=== PATIENT | female | born 1975 | race Caucasian/White ===

== ENCOUNTER 2020-09-10 17:55 | Inpatient (IN) | payer MEDICARE, MEDICAID, SELFPAY ==
[2020-09-10] VITALS (10 sets, daily range): BP systolic 121–150; BP diastolic 67–100; PULSE 81–96; RESP 14–21; TEMP 36.4–36.9; O2SAT 97–100; BMI 33.5
--- NOTE | 2020-09-10 18:04 | PC.NURSE ---
poison control Kevyn Garcia contacted charcoal is of no benefit since lithium does not bind to charcoal obtain baseline and serial lithium levels Q 4-6 hours and watch for trending peak levels in normal usage 1-3 hours but will be extended with overdose up to 17 hours if levels high hemodialysis is only way to rid body of lithium check for other co-ingestion such as asa and tylenol hydraion cause can decrease renal function, cause tremors, gi upset, n/v/d, serotonin toxicity
--- NOTE | 2020-09-10 18:11 | ECG_ITS ---
Measurements Intervals [place] Rate: 79 P: 37 WV: 191 QRS: -16 QRSD: 102 T: 21 QT: 389 QTc: 448 Interpretive Statements SINUS RHYTHM BORDERLINE T WAVE ABNORMALITY- INFERIOR LEADS BASELINE WANDER- I, II BORDERLINE ECG Electronically Signed On 09-10-2020 20:16:23 CUSTOMER RECORDS DIVISION SUPERVISOR by Kenneth Allison D.O.
--- NOTE | 2020-09-10 18:26 | ED.OVERDOSE ---
HPI - Overdose General Chief Complaint: Overdose Stated Complaint: overdose Time Seen by Provider: 09/10/20 18:11 History of Present Illness HPI Narrative: 44 yo female w/ h/o BPD presents to the ED for a lithium overdose. She reports that she took 45 150 mg lithium carbonate capsules. She was feeling more depressed and was trying to kill herself. She then changed her mind. She had mild nausea, but on presentation denies any physical symptoms. Related Data Home Medications Medication Instructions Recorded Confirmed alprazolam 0.5 mg PO BID 07/24/19 09/10/20 bupropion HCl 300 mg PO DAILY 07/24/19 09/10/20 bsuwvshbbq-tyjzkbjkdkysy-npzi 1 tablet PO Q4H PRN 07/24/19 09/10/20 lithium carbonate 300 mg PO DAILY 07/24/19 09/10/20 topiramate 100 mg PO BID 07/24/19 09/10/20 levothyroxine 175 mcg PO DAILY 09/10/20 09/10/20 oxycodone-acetaminophen 1 tablet PO Q6H PRN 09/10/20 09/10/20 ubrogepant [Ubrelvy] 50 mg PO DAILY PRN 09/10/20 09/10/20 Allergies Allergy/AdvReac Type Severity Reaction Status Date / Time codeine Allergy Severe Hives Verified 09/10/20 17:59 morphine Allergy Severe Hives Verified 09/10/20 17:59 NSAIDS (Non-Steroidal AdvReac Unknown Other Verified 09/10/20 17:59 Anti-Inflamma Review of Systems Review of Systems: All systems reviewed & are unremarkable except as noted in HPI and below Constitutional: Constitutional: Reports fever(s) Cardiovascular: Cardiovascular: Denies chest pain Respiratory: Respiratory: Denies dyspnea Gastrointestinal: Gastrointestinal: Denies abdominal pain, Reports nausea and Denies vomiting Genitourinary: Genitourinary: Denies hematuria and Denies dysuria Musculoskeletal: Musculoskeletal: Denies back pain Neurologic: Denies confusion, Denies dizziness and Denies weakness Psychiatric: Psychiatric: Reports anxiety, Reports depression and Reports suicidal ideation [facility] Past Medical History Medical History (Updated 09/16/20 @ 13:57 by Tanner Gorman MD) Bipolar 1 disorder Depression Hypothyroidism Insomnia Type 2 diabetes mellitus Family History Family History (Updated 09/10/20 @ 23:16 by Stacie De Paz RN) Father Acute myocardial infarction Colon cancer Congestive heart failure Diabetes mellitus Hypertension Mother Acute myocardial infarction Diabetes mellitus Hypertension Sibling Asthma Other Bipolar disorder Heart disease Schizophrenia Social History Social History (Updated 09/10/20 @ 21:18 by Tom Styles DO) Social History: Going through a divorce, she has 2 boys who do not live with her. Smoking status: Former smoker Smoking end date: 09/16/99 Alcohol intake: never Substance use: current Substance use type: marijuana Last use: 09/09/20 Living arrangements: with friend(s) Occupation/Education: other Additional occupation/education comments: Disability for her back problems since 2012 Gender identity (if verbalized by the patient): Female Spiritual care concerns: No Exam Const: General: healthy appearing, no acute distress and alert Orientation/consciousness: patient oriented x3 HENMT: Head: normal to inspection Eyes: Pupils: Equal, round and reactive pupils present Neck: Neck: normal visual inspection and no lymphadenopathy Chest: Chest palpation & inspection: no tenderness Resp: Effort & Inspection: normal respiratory effort Auscultation: clear to auscultation bilaterally, no rales, no rhonchi and no wheezes Cardio: Jugular venous distension: no JVD Rate: regular rate Rhythm: regular rhythm Heart sounds: no murmurs GI: Inspection: non-distended GI Palp: Yes Soft to palpation and No Tenderness to palpation present (GI) Skin: General skin exam: normal color Neuro: General: patient oriented x3 and moves all extremities Speech: normal speech Extrem: General: no edema Psych: Appearance: well kempt Affect: Sad affect present Thought content: Yes Suicidality pres
[2020-09-10 18:33] LABS: Basophils Absolute Auto 0.2 K/mm3 (0.0-0.1); Basophils Percent Auto 1.2 % (0.2-1.2); Eosinophils Absolute Auto 0.4 K/mm3 (0-0.3); Eosinophils Percent Auto 2.9 % (0-4.4); Hematocrit 40.9 % (37.0-47.0); Hemoglobin 13.8 g/dL (12.0-15.0); Immature Granulocyte Absolute 0.04 K/mm3 (0.00-0.031); Immature Granulocyte Percent A 0.3 % (0-0.5); Lymphocytes Absolute Auto 3.45 K/mm3 (0.9-3.2); Lymphocytes Percent Auto 27.2 % (18.3-44.2); Mean Corpuscular HGB Conc 33.7 g/dl (32-36); Mean Corpuscular Hemoglobin 30.2 pg (26-34); Mean Corpuscular Volume 89.5 fl (80-100); Mean Platelet Volume 10.1 fl (7.4-10.4); Monocytes Absolute Auto 0.5 K/mm3 (0.1-0.6); Monocytes Percent Auto 4.2 % (2.6-8.5); Neutrophils Absolute Auto 8.1 K/mm3 (1.3-6.7); Neutrophils Percent Auto 64.2 % (45.5-73.1); Platelet Count Result 290 k/mm3 (150-375); Red Blood Count 4.57 M/mm3 (4.2-5.4); Red Cell Distribution Width 13.1 % (11.5-14.5); White Blood Count 12.7 K/mm3 (4.5-10.0)
[2020-09-10 18:42] LABS: INR 0.9; Prothrombin Time 13.1 Seconds (11.1-14.7)
[2020-09-10 18:43] LABS: Partial Thromboplastin Time 31.3 SECONDS (22.3-36.8)
[2020-09-10 18:44] LABS: Acetaminophen < 10 ug/mL (10-30); Alanine Aminotransferase 49 U/L (4-35); Albumin Level 4.5 g/dL (3.5-5.1); Alkaline Phosphatase 155 U/L (38-126); Anion Gap 12 mmol/L (8-16); Aspartate Amino Transferase 48 U/L (14-36); Bilirubin,Total 0.4 mg/dL (0.2-1.3); Blood Urea Nitrogen 14 mg/dL (7-17); Calcium 9.6 mg/dL (8.4-10.2); Carbon Dioxide 25 mmol/L (22-30); Chloride 106 mmol/L (98-107); Estimated CRCL calculation 58 ml/min; Estimated Glomerular Filt Rate > 60; Ethanol < 10 mg/dL (<10); Glucose 96 mg/dL (65-105); Phosphorus 4.1 mg/dL (2.5-4.5); Potassium 3.7 mmol/L (3.4-5.0); Salicylate < 1.0 mg/dL (2-20); Sodium 143 mmol/L (137-145)
[2020-09-10] MEDS: SODIUM CHLORIDE 0.9% IV 1,000 ML 999 ML IV CONT ×2 (18:57→19:58)
[2020-09-10 19:20] LABS: Lithium 0.6 mmol/L (0.6-1.2)
--- NOTE | 2020-09-10 19:39 | PM.IMHP ---
H&P: HPI History of Present Illness Date/Time: 09/10/20 19:39 Chief Complaint: Intentional lithium overdose Narrative: Cami Duval is a 44 year old female complicated psychiatric history bipolar disorder on multiple agents, history of suicide ideation, type 2 diabetes diet controlled, migraine, and hypothyroidism presents to the ED with complaints lithium overdose. Patient admitted feeling very depressed recently especially on as her 2 sons do not live with her and she is going through a divorce. She feels that her friends and family do not understand which she is going through. She has had history of suicide ideation and never suicide attempt. This evening at 5:30 p.m. she took 40 tablets of lithium, and immediately regretted her decision leading her to the ER. She did not take any other substances. She denies alcohol use or drug use this evening. She did endorse using marijuana yesterday. She follows PCP Dr. Aroldo Nick, last time saw 4 months ago who helps manage her lithium by and bipolar disorder. She does not have a psychiatrist and is looking for help. Other history patient is on disability for back problems since 2012. She currently is living with a friend. In the ED: Labs are stable, slight transaminitis with AST 48, ALT 49, alk-phos 155. [place] level 0.6 at this time, other tox screen negative. Patient admitted for observation for lithium overdose in ICU. At 1st she did not have any symptoms, and now she is developing some tremors and cramping in her arms and legs. She has nausea without vomiting. Review of Systems Review of Systems: Narrative: Constitutional: No Fever, No Chills, No Night Sweats, No Fatigue, No Malaise ENT/Mouth: No Hearing Changes, No Ear Pain, No Nasal Congestion, No Sinus Pain, No Hoarseness, No sore throat, No Rhinorrhea, No Swallowing Difficulty Eyes: No Eye Pain, No Redness, No Vision Changes Cardiovascular: No Chest Pain, No Palpitations, No Dyspnea on Exertion, No Orthopnea, No Claudication, No Edema Respiratory: No Cough, No Sputum, No Wheezing, No Shortness of Breath Gastrointestinal: No Vomiting, No Diarrhea, No Constipation, No Abdominal Pain, No Heartburn, No Hematochezia, No Melena. Endorses nausea. Genitourinary: No Dysuria, No Urinary Frequency, No Hematuria, No Urinary Incontinence, No Urgency Musculoskeletal: No Arthralgias, No Myalgias, No Joint Swelling, No Joint Stiffness, No Back Pain Skin: No Skin Lesions, No Pruritis, No Hair Changes Neuro: No Weakness, No Numbness, No Paresthesias, No Loss of Consciousness, No Syncope, No Dizziness, No Headache. She is starting to develop cramps in her arms and legs, minor tremors. Psych: Endorses depression, suicide ideation. Denies homicidal ideation. Heme: No Bruising, No Bleeding Lymph: No Adenopathy Endocrine: No Polyuria, No Polydipsia, No Temperature Intolerance [facility] Past Medical History Medical History (Updated 09/10/20 @ 21:16 by Tom Styles DO) Bipolar 1 disorder Depression Hypothyroidism Insomnia Type 2 diabetes mellitus Family History Family History (Updated 09/10/20 @ 21:16 by Tom Styles DO) Other Bipolar disorder Diabetes mellitus Heart disease Schizophrenia Social History Social History (Updated 09/10/20 @ 21:18 by Tom Styles DO) Social History: Going through a divorce, she has 2 boys who do not live with her. Smoking status: Former smoker Alcohol intake: never Substance use: current Substance use type: marijuana Last use: Yesterday marijuana Living arrangements: with friend(s) Occupation/Education: other Additional occupation/education comments: Disability for her back problems since 2012 Gender identity (if verbalized by the patient): Female Meds Home Medications and Allergies Home Medications Medication Instructions Recorded Confirmed Type alprazolam 07/24/19 History bupropion HCl mg PO 07/24/19 History
[2020-09-10] MEDS: LORazepam INJ (*CRX) 2 MG/ML VIAL 1 MG IV PUSH (19:57)
--- NOTE | 2020-09-10 20:00 | PC.NURSE ---
Patient sent her phone home with her friend Tony Torres at this time.
--- NOTE | 2020-09-10 20:48 | PC.NURSE ---
Patient up to bathroom with prosthetic lab technician. Patient unable to provide urine at this time.
[2020-09-10] MEDS: SODIUM CHLORIDE 0.9% IV 1,000 ML 125 ML IV CONT (21:52)
[2020-09-10 23:24] LABS: Glucose Point of Care 75 (65-105)
--- NOTE | 2020-09-10 23:46 | ECG_ITS ---
Measurements Intervals [place] Rate: 86 P: 46 MS: 200 QRS: 47 QRSD: 92 T: 57 QT: 380 QTc: 456 Interpretive Statements SINUS RHYTHM BASELINE ARTIFACT- I, II, III, AVR, AVL, AVF, V1, V4-V6 NORMAL ECG Electronically Signed On 09-11-2020 7:45:38 GEODETIC ADVISOR by Kenneth Allison D.O.
[2020-09-11] VITALS (14 sets, daily range): BP systolic 115–144; BP diastolic 73–87; PULSE 80–97; RESP 14–24; TEMP 36.8–37.6; O2SAT 97–100
--- NOTE | 2020-09-11 00:01 | ECG_ITS ---
Measurements Intervals [place] Rate: 85 P: 49 TN: 186 QRS: 33 QRSD: 91 T: 47 QT: 383 QTc: 458 Interpretive Statements SINUS RHYTHM BASELINE ARTIFACT- I, II, III, AVR, AVL, AVF NORMAL ECG Electronically Signed On 09-11-2020 7:46:52 PAYMENT MANAGER by Kenneth Allison D.O.
[2020-09-11 00:48] LABS: Add Urine Microscopic? NO; Appearance Urine Clear (Clear); Bilirubin Urine Negative (Negative); Blood Urine Negative (Negative); Color Urine Straw (Yellow); Glucose Urine UA Negative (Negative); Ketones Urine Negative (Negative); Leukocyte Esterase Ur Negative LEU/UL (Negative); Nitrate Urine Negative (Negative); Protein Urine Negative (Negative); Specific Grav Ur 1.009 (1.001-1.035); Urobilinogen Urine Negative mg/dL (<2.0)
[2020-09-11 01:02] LABS: Amphetamine Screen Urine Positive (Negative); Barbiturate Screen Urine Negative (Negative); Benzodiazepines Screen Urine Negative (Negative); Cannabinoid Screen Urine Positive (Negative); Cocaine Screen Urine Negative (Negative); Methadone Screen Urine Negative (Negative); Opiate Screen Urine Negative (Negative); Phencyclidine Screen Urine Negative (Negative)
[2020-09-11 01:41] LABS: Lithium 2.1 mmol/L (0.6-1.2)
[2020-09-11] MEDS: SODIUM CHLORIDE 0.9% IV 1,000 ML 125 ML IV CONT ×2 (05:02→13:21)
--- NOTE | 2020-09-11 08:00 | ECG_ITS ---
Measurements Intervals [place] Rate: 77 P: 42 VA: 203 QRS: 33 QRSD: 96 T: 54 QT: 412 QTc: 467 Interpretive Statements SINUS RHYTHM BORDERLINE ECG Electronically Signed On 09-11-2020 15:04:09 TABLE ASSEMBLER METAL by Kenneth Allison D.O.
[2020-09-11 08:26] LABS: Lithium 1.5 mmol/L (0.6-1.2)
[2020-09-11] MEDS: SODIUM CHLORIDE 0.9% IV 1,000 ML 999 ML IV CONT (08:36)
[2020-09-11 09:24] LABS: Alanine Aminotransferase 31 U/L (4-35); Albumin Level 3.3 g/dL (3.5-5.1); Alkaline Phosphatase 117 U/L (38-126); Anion Gap 8 mmol/L (8-16); Aspartate Amino Transferase 26 U/L (14-36); Bilirubin,Total 0.3 mg/dL (0.2-1.3); Blood Urea Nitrogen 8 mg/dL (7-17); Calcium 8.8 mg/dL (8.4-10.2); Carbon Dioxide 22 mmol/L (22-30); Chloride 113 mmol/L (98-107); Estimated CRCL calculation 59 ml/min; Estimated Glomerular Filt Rate > 60; Glucose 86 mg/dL (65-105); Potassium 3.4 mmol/L (3.4-5.0); Sodium 143 mmol/L (137-145)
--- NOTE | 2020-09-11 10:00 | PM.IMPN ---
Progress Note: A&P Assessment and Plan (1) Intentional lithium overdose: Code(s): T56.892A - Toxic effect of other metals, intentional self-harm, initial encounter Status: Acute Assessment and Plan: -intentional overdose of 40 pills of lithium at 5:30 p.m. 09/10/2020 -EKG shows normal sinus rhythm rate 79, QTC 448 -continue watching on telemetry, looking out for QTC prolongation and bradycardia -lithium level 0.6 will continue to watch, currently does not need dialysis, if levels are greater than 5 or symptomatic she may need dialysis -seizure precautions, suicide precautions -anticipate nausea vomiting and diarrhea, will need to be careful with QT prolonging agents -patient was complaining of tremors, she did not have any significant tremors on my evaluation, will continue to watch as lithium toxicity can lead to tremors or fasciculations -acetaminophen and salicylate levels are negative -patient received 2 L normal saline bolus, will continue IV fluids normal saline 125 cc/hour to help with clearance -consulting dry starch supervisor for ICU admission -poison Control notified -patient will need psychiatric care Additional Plan Patient lithium level is trending down. Patient more awake and alert. Will start diet. And restart home medications. Will continue to watch patient. Subjective Date/time seen: 09/11/20 10:00 Interval history: Patient was seen during the morning rounds today. Patient is more awake and alert. No shortness of breath or chest pain. No abdominal pain nausea or vomiting. Mood stable. Review of Systems Review of Systems: All systems reviewed & are unremarkable except as noted in HPI and below (the history and physical exam) Exam Narrative: Exam Narrative: - GENERAL: Pleasant woman in no acute distress. - EYES: EOMI. Anicteric. - HENT: Moist mucous membranes. - LUNGS: Clear to auscultation bilaterally, no wheezing, rhonchi, or rales. - CARDIOVASCULAR: Regular rate and rhythm. No murmur. No JVD. - ABDOMEN: Soft, non-tender and non-distended. No palpable masses. - EXTREMITIES: No edema. Peripheral pulses 2+. Non-tender. - NEUROLOGIC: No focal neurological deficits. CN II-XII grossly intact. - PSYCHIATRIC: Awake, Alert and oriented x 3. Tearful mood and affect. She was calm when talking to me, not overly anxious given the circumstances. She does have remorse for her intentional overdose prompting her to come to the hospital so quickly after overdose. - SKIN: No rashes or lesions. Warm. Tattoos throughout. - LYMPH: No cervical lymphadenopathy. Objective Data Vital Signs Vital Signs: Vital Signs - 24 hr 09/10/20 17:56 09/10/20 18:18 09/10/20 19:30 Temperature 36.4 C L 36.6 C Pulse Rate 95 90 84 Respiratory Rate 14 14 21 H Blood Pressure 150/100 H 129/82 136/79 Pulse Oximetry 100 98 97 09/10/20 20:01 09/10/20 20:31 09/10/20 21:18 Temperature 36.8 C 36.6 C 36.4 C L Pulse Rate 81 82 89 Respiratory Rate 15 20 16 Blood Pressure 121/70 136/86 123/67 Pulse Oximetry 100 98 99 09/10/20 21:45 09/10/20 22:00 09/10/20 22:30 Temperature Pulse Rate 84 84 Respiratory Rate 21 H Blood Pressure 140/85 Pulse Oximetry 100 100 09/10/20 23:00 09/11/20 00:00 09/11/20 01:00 Temperature 36.9 C Pulse Rate 96 90 81 Respiratory Rate 19 24 H 15 Blood Pressure 134/85 141/82 H 143/80 H Pulse Oximetry 100 100 97 09/11/20 02:00 09/11/20 04:00 09/11/20 06:30 Temperature 36.8 C Pulse Rate 89 86 80 Respiratory Rate 19 14 17 Blood Pressure 144/81 H 125/79 115/73 Pulse Oximetry 100 100 98 09/11/20 08:00 Temperature 36.8 C Pulse Rate 85 Respiratory Rate 21 H Blood Pressure 132/80 Pulse Oximetry 99 Intake/Output Intake/Output: Intake & Output 09/08/20 09/09/20 09/10/20 09/11/20 23:59 23:59 23:59 23:59 Intake Total 1999 1170 Output Total 1299 Balance 1999 - Meds/Results Medications: Active Medications Generic Name Dose Route Start Last Admin Trade Name F
--- NOTE | 2020-09-11 13:08 | WPDCNINT ---
Assessment and Plan Assessment and plan (1) Intentional lithium overdose: Code(s): T56.892A - Toxic effect of other metals, intentional self-harm, initial encounter Status: Acute Assessment and Plan: [place] levels were initially 0.6, increased to 2.5 when she started demonstrating toxicity from lithium with nausea, vomiting, diarrhea. -repeat lithium level this morning was 1.5. No EKG changes with normal QTC, nausea vomiting diarrhea resolved. -continue to monitor lithium levels -poison control was notified, continue to monitor for now -nephrology also was notified to the ER (2) Suicidal behavior: Code(s): R45.89 - Other symptoms and signs involving emotional state Status: Acute Assessment and Plan: Patient with suicidal behavior in will enter life but decided against and presented to the ED after ingesting lithium 150 mg x 45 pills. -patient medically stable -will have care coordination in crisis management evaluate the patient -suicide precaution - sitter at bedside (3) Diabetes: Code(s): E11.9 - Type 2 diabetes mellitus without complications Status: Acute Assessment and Plan: Sugars are stable, continue Accu-Cheks and sliding scale insulin (4) Hypothyroidism: Code(s): E03.9 - Hypothyroidism, unspecified Status: Acute Assessment and Plan: Continue levothyroxine (5) DVT prophylaxis: Code(s): Z29.9 - Encounter for prophylactic measures, unspecified Status: Acute Assessment and Plan: Heparin SQ Additional Plan Discussed with patient updated with her condition and plan of care. She is aware that and lithium levels are trending down. Counseled patient on cessation of marijuana and methamphetamine use Started on clear liquid diet and will advance as tolerated Code status: Full code Critical care time spent: 42 minutes Due to a high probability of clinically significant, life threatening deterioration, the patient required my highest level of preparedness to intervene emergently and I personally spent this critical care time directly and personally managing the patient. This critical care time included obtaining a history; examining the patient; pulse oximetry; ordering and review of studies; arranging urgent treatment with development of a management plan; evaluation of patient's response to treatment; frequent reassessment; and discussions with other providers. It was exclusive of separately billable procedures and treating other patients and teaching time. Please see Assessment and Plan section and the rest of the note for further information on patient assessment and treatment Senior Sales Associate Consult Note Consult date: 09/11/20 Time Seen: 07:03 Reason for consult: [place] overdose, suicide behavior HPI: Cami Duval is a 44 year old female past medical history of BiPAP disorder, depression hypothyroidism insomnia type 0 diabetes presented the ED ingestion of lithium 150 mg x45 pills. According the ER note she was feeling depressed was trying to kill herself but then changed her mind and presented the ED. In the ED patient was given IV fluids, poison control was notified and so was Nephrology. Patient was transferred to the ICU after been given 2 L of IV fluids. Initial lithium level was 0.6 and repeat level was 2.5. Patient did exhibit nausea, vomiting, diarrhea. Remained on maintenance IV fluids, this morning her lithium levels are 1.5. Patient denies any nausea, vomiting, abdominal pain, tremors, diarrhea. EKG did not show any QT prolongation. Patient able to tolerate clear liquid diet urine drug screen was positive for methamphetamine and marijuana. Which patient agrees to be taking. Acetaminophen and salicylate levels are negative. Review of Systems Review of Systems: All systems reviewed & are unremarkable except as noted in HPI and below [facility] Past Medical History Medical History (Updated 09/11/20 @ 13:17 by Dulce Campoverde
[2020-09-11 13:24] LABS: Lithium 1.2 mmol/L (0.6-1.2)
[2020-09-11] MEDS: ACETAMINOPHEN 325 MG TABLET 650 MG PO (20:49)
[2020-09-11] MEDS: HEPARIN SODIUM 5,000 UNITS/ML VIAL 5000 UNITS SUB-Q (20:51)
[2020-09-11 21:07] LABS: Lithium 0.9 mmol/L (0.6-1.2)
[2020-09-12] VITALS (14 sets, daily range): BP systolic 115–143; BP diastolic 70–84; PULSE 69–87; RESP 13–23; TEMP 36.4–37.4; O2SAT 98–99; BMI 27.4
[2020-09-12 01:56] LABS: Lithium 0.9 mmol/L (0.6-1.2)
[2020-09-12] MEDS: ACETAMINOPHEN 325 MG TABLET 650 MG PO (04:46)
[2020-09-12] MEDS: SODIUM CHLORIDE 0.9% IV 1,000 ML 125 ML IV CONT ×2 (04:48→05:36)
[2020-09-12] MEDS: ALPRAZolam (*CRX) 0.5 MG TABLET PO ×2 (05:37→20:22)
[2020-09-12 06:14] LABS: Hematocrit 32.5 % (37.0-47.0); Mean Corpuscular HGB Conc 33.8 g/dl (32-36); Mean Corpuscular Volume 88.6 fl (80-100); Mean Platelet Volume 9.9 fl (7.4-10.4); Platelet Count Result 211 k/mm3 (150-375); Red Blood Count 3.67 M/mm3 (4.2-5.4); Red Cell Distribution Width 12.9 % (11.5-14.5); White Blood Count 13.8 K/mm3 (4.5-10.0)
[2020-09-12 06:44] LABS: Lithium 0.8 mmol/L (0.6-1.2)
--- NOTE | 2020-09-12 08:11 | PM.IMPN ---
Progress Note: A&P Assessment and Plan (1) Intentional lithium overdose: Code(s): T56.892A - Toxic effect of other metals, intentional self-harm, initial encounter Status: Acute Assessment and Plan: -intentional overdose of 40 pills of lithium at 5:30 p.m. 09/10/2020 -EKG shows normal sinus rhythm rate 79, QTC 448 -continue watching on telemetry, looking out for QTC prolongation and bradycardia -lithium level 0.6 will continue to watch, currently does not need dialysis, if levels are greater than 5 or symptomatic she may need dialysis -seizure precautions, suicide precautions -anticipate nausea vomiting and diarrhea, will need to be careful with QT prolonging agents -patient was complaining of tremors, she did not have any significant tremors on my evaluation, will continue to watch as lithium toxicity can lead to tremors or fasciculations -acetaminophen and salicylate levels are negative -patient received 2 L normal saline bolus, will continue IV fluids normal saline 125 cc/hour to help with clearance -consulting bottoming room supervisor for ICU admission -poison Control notified -patient will need psychiatric care Additional Plan Patient lithium level is trending down. Patient more awake and alert. Will start diet. And restart home medications. Will continue to watch patient. Crisis intervention with see the patient today. Possible discharge today Subjective Date/time seen: 09/12/20 08:11 Interval history: Patient was seen during the morning rounds today. Patient is more awake and alert. No shortness of breath or chest pain. No abdominal pain nausea or vomiting. Mood stable. No new complaints Review of Systems Review of Systems: All systems reviewed & are unremarkable except as noted in HPI and below (the history and physical exam) Exam Narrative: Exam Narrative: - GENERAL: Pleasant woman in no acute distress. - EYES: EOMI. Anicteric. - HENT: Moist mucous membranes. - LUNGS: Clear to auscultation bilaterally, no wheezing, rhonchi, or rales. - CARDIOVASCULAR: Regular rate and rhythm. No murmur. No JVD. - ABDOMEN: Soft, non-tender and non-distended. No palpable masses. - EXTREMITIES: No edema. Peripheral pulses 2+. Non-tender. - NEUROLOGIC: No focal neurological deficits. CN II-XII grossly intact. - PSYCHIATRIC: Awake, Alert and oriented x 3. Tearful mood and affect. She was calm when talking to me, not overly anxious given the circumstances. She does have remorse for her intentional overdose prompting her to come to the hospital so quickly after overdose. - SKIN: No rashes or lesions. Warm. Tattoos throughout. - LYMPH: No cervical lymphadenopathy. Objective Data Vital Signs Vital Signs: Vital Signs - 24 hr 09/11/20 10:00 09/11/20 12:00 09/11/20 14:00 Temperature Pulse Rate 85 85 87 Respiratory Rate 16 Blood Pressure 124/74 Pulse Oximetry 99 09/11/20 16:00 09/11/20 18:00 09/11/20 20:00 Temperature 37.6 C 36.8 C Pulse Rate 89 96 95 Respiratory Rate 18 18 Blood Pressure 135/87 127/75 Pulse Oximetry 100 99 09/11/20 20:49 09/11/20 22:00 09/12/20 00:00 Temperature 36.8 C Pulse Rate 80 81 Respiratory Rate 21 H Blood Pressure Pulse Oximetry 09/12/20 02:00 09/12/20 03:57 09/12/20 04:00 Temperature 37.4 C Pulse Rate 81 81 81 Respiratory Rate 23 H Blood Pressure 125/70 Pulse Oximetry 99 09/12/20 05:12 09/12/20 06:00 Temperature Pulse Rate 81 81 Respiratory Rate 15 Blood Pressure 115/73 Pulse Oximetry 98 Intake/Output Intake/Output: Intake & Output 09/09/20 09/10/20 09/11/20 09/12/20 23:59 23:59 23:59 23:59 Intake Total 1999 4890 1000 Output Total 3650 1050 Balance 1999 1240 -50 Meds/Results Medications: Active Medications Generic Name Dose Route Start Last Admin Trade Name Freq PRN Reason Stop Dose Admin Acetaminophen 650 mg 09/11/20 19:51 09/12/20 04:46 Acetaminophen 325 Mg Tablet PO 650 mg Q6H PRN Administration
[2020-09-12] MEDS: LEVOTHYROXINE SODIUM 100 MCG TABLET PO (08:18)
[2020-09-12] MEDS: LEVOTHYROXINE SODIUM 75 MCG TABLET PO (08:18)
[2020-09-12] MEDS: HEPARIN SODIUM 5,000 UNITS/ML VIAL 5000 UNITS SUB-Q ×2 (08:18→20:23)
[2020-09-12] MEDS: buPROPion HCL XL (24 HR) 150 MG TABCR 300 MG PO (08:18)
[2020-09-12] MEDS: LITHIUM CARBONATE 300 MG CAPSULE PO (09:21)
[2020-09-12] MEDS: TOPIRAMATE 100 MG TABLET PO ×2 (09:22→16:38)
[2020-09-12 17:10] LABS: SARS-CoV-2 RNA PCR Negative
[2020-09-12 17:50] LABS: Beta HCG Quantitative 3.31 mIU/ML
--- NOTE | 2020-09-12 19:44 | PC.NURSE ---
Spoke with RN at [facility] in [place]. Requested chart faxed. Chart faxed along with COVID test.
[2020-09-13] VITALS: BP 129/87; PULSE 73; RESP 14; TEMP 36.8
[2020-09-13 02:00] VITALS: PULSE 78
[2020-09-13] MEDS: ACETAMINOPHEN 325 MG TABLET 650 MG PO (02:54)
[2020-09-13 04:00] VITALS: BP 145/87; PULSE 71; RESP 18; TEMP 36.7; O2SAT 98
[2020-09-13 06:00] VITALS: PULSE 60
[2020-09-13] MEDS: LEVOTHYROXINE SODIUM 75 MCG TABLET PO (06:03)
[2020-09-13] MEDS: LEVOTHYROXINE SODIUM 100 MCG TABLET PO (06:04)
[2020-09-13 08:00] VITALS: BP 126/80; PULSE 60; PULSE 71; RESP 14; TEMP 36.3; O2SAT 100
[2020-09-13] MEDS: HEPARIN SODIUM 5,000 UNITS/ML VIAL 5000 UNITS SUB-Q (08:46)
[2020-09-13] MEDS: buPROPion HCL XL (24 HR) 150 MG TABCR 300 MG PO (08:46)
[2020-09-13] MEDS: TOPIRAMATE 100 MG TABLET PO (08:46)
[2020-09-13] MEDS: LITHIUM CARBONATE 300 MG CAPSULE PO (08:46)
--- NOTE | 2020-09-13 10:31 | PC.NURSE ---
1010- PT DISCHARGED TO [facility] PER EMS. PT AOX3. VITAL SIGNS STABLE. DENIES PAIN. REPORT GIVEN TO EMS. PT UP TO RESTROOM AND GIVEN PAPER SCRUBS. BELONGINGS GIVEN TO EMS. RT AC PIV DC'ED. PT MOTHER AND CALLED AND UPDATED.
--- NOTE | 2020-09-13 15:36 | PM.IMPN ---
Subjective Date/time seen: 09/13/20 15:36 Interval history: 44 year old female complicated psychiatric history bipolar disorder on multiple agents, history of suicide ideation, type 2 diabetes diet controlled, migraine, and hypothyroidism presents to the ED with complaints lithium overdose. Objective Data Vital Signs Vital Signs: Vital Signs - 24 hr 09/12/20 16:00 09/12/20 17:57 09/12/20 20:00 Temperature 36.4 C L 36.7 C Pulse Rate 85 81 81 Respiratory Rate 16 16 Blood Pressure 143/84 H 140/77 Pulse Oximetry 09/12/20 22:00 09/13/20 00:00 09/13/20 02:00 Temperature 36.8 C Pulse Rate 87 73 78 Respiratory Rate 14 Blood Pressure 129/87 Pulse Oximetry 09/13/20 04:00 09/13/20 06:00 09/13/20 08:00 Temperature 36.7 C 36.3 C L Pulse Rate 71 60 71 Respiratory Rate 18 14 Blood Pressure 145/87 H 126/80 Pulse Oximetry 98 100 Intake/Output Intake/Output: Intake & Output 09/10/20 09/11/20 09/12/20 09/13/20 23:59 23:59 23:59 23:59 Intake Total 1999 4890 3190 700 Output Total 3650 3100 1000 Balance 1999 1240 90 -300 Labs Labs: Laboratory Results - last 24 hr 09/12/20 09/12/20 05:37 10:40 Beta HCG, Quant 3.31 SARS-CoV-2 RNA (RT-PCR) Negative Quality VTE Prophylaxis VTE prophylaxis: pharmacologic ordered
--- NOTE | 2020-09-13 16:54 | PM.DS ---
DS: Admitting Diagnosis Admitting Diagnosis Admitting Diagnosis: Intentional lithium overdose DS: Discharge Diagnosis Discharge Diagnosis (1) Intentional lithium overdose: Qualifiers: Encounter type: initial encounter Qualified Code(s): T56.892A - Toxic effect of other metals, intentional self-harm, initial encounter Code(s): T56.892A - Toxic effect of other metals, intentional self-harm, initial encounter Status: Acute Assessment and Plan: -intentional overdose of 40 pills of lithium at 5:30 p.m. 09/10/2020 -EKG shows normal sinus rhythm rate 79, QTC 448 -continue watching on telemetry, looking out for QTC prolongation and bradycardia -lithium level 0.6 will continue to watch -seizure precautions, suicide precautions -patient received 2 L normal saline bolus, will continue IV fluids normal saline 125 cc/hour to help with clearance -poison Control notified -patient will need psychiatric care DS: Summary Hospital Course Hospital Course: Patient was seen during the morning rounds today. Patient is more awake and alert. No shortness of breath or chest pain. No abdominal pain nausea or vomiting. Mood stable. Pt is accepted by Psych facility. Pt voluntarily transferred to psych facility. Time Spent with Patient Time attestation: Total time spent providing and/or coordinating discharge services:40 minutes on day of dischrage Exam Const: General: tired appearing HENMT: Head: normocephalic Eyes: General: appearance normal, both eyes and all related structures Pupils: Equal, round and reactive pupils present Neck: Neck: supple Chest: Chest palpation & inspection: normal inspection of the chest Resp: Effort & Inspection: normal respiratory effort Auscultation: clear to auscultation bilaterally Cardio: Jugular venous distension: no JVD Rhythm: regular rhythm Heart sounds: S1 normal heart sound present and S2 normal heart sound present GI: Inspection: normal to inspection GI Palp: No abdominal tenderness, Yes Soft to palpation and No Tenderness to palpation present (GI) Auscultation: normal bowel sounds Skin: General skin exam: normal color and dry skin Neuro: Cranial nerves: Yes CN's II-XII intact bilaterally and Yes Equal, round and reactive pupils present Cognition (Neuro): normal cognition Speech: normal speech Motor exam (neuro): 5/5 motor strength present throughout Extrem: General: normal to inspection Psych: Appearance: grossly normal Mental Status: mental status grossly normal DS: Data Data Completed and Pending Labs on day of discharge: Labs from last 24 hours 09/12/20 09/12/20 10:40 05:37 Beta HCG, Quant 3.31 SARS-CoV-2 RNA (RT-PCR) Negative Discharge Plan Discharge Attending physician on discharge: Anastacia Paige Consulting providers: Dulce Deutsch ; Anastacia Paige ; Kenneth Allison ; Tom Styles Discharging Clinician: Anastacia Paige Anticipated Discharge Date/Time: 09/13/20 16:54 Patient Disposition: Psychiatric Hosp Activity: as tolerated Diet: regular Patient Instructions: Antibiotic Form Stand Alone Forms: General Discharge Information Discharge Orders: Discharge Order (Routine); Ordered 09/13/20 Ordered By: Anastacia Paige Discharge Medications: Discontinued rxuwumdnok-jndkhozheezcs-juis 50-325-40 mg tablet 1 tablet PO Q4H PRN (Reason: migraine) RF: 0 alprazolam 0.5 mg tablet 0.5 mg PO BID RF: 0 topiramate 25 mg capsule, sprinkle 100 mg PO BID RF: 0 lithium carbonate 300 mg capsule 300 mg PO DAILY RF: 0 bupropion HCl 300 mg tablet extended release 24 hr 300 mg PO DAILY RF: 0 oxycodone-acetaminophen 5-325 mg tablet 1 tablet PO Q6H PRN (Reason: migraines) RF: 0 Ubrelvy 50 mg tablet 50 mg PO DAILY PRN (Reason: migraine) RF: 0 levothyroxine 175 mcg tablet 175 mcg PO DAILY RF: 0 Date of admission: 09/12/20 15:06 Primary Care Provider
--- NOTE | 2020-10-25 11:49 | PM.TDS ---
Transfer Discharge Sum: Prov Provider Date of admission: 09/12/20 15:06 Primary care physician: Aroldo Kumar MD Admitting clinician: Gibson Neely MD Consults: 09/10/20 19:26 Consult to Physician Routine Comment: Consulting Provider: Dulce Deutsch Reason for consultation: [place] overdose Has provider been notified: Yes DS: Admitting Diagnosis Admitting Diagnosis Admitting Diagnosis: [place] overdose DS: Discharge Diagnosis Discharge Diagnosis (1) Intentional lithium overdose: Qualifiers: Encounter type: initial encounter Qualified Code(s): T56.892A - Toxic effect of other metals, intentional self-harm, initial encounter Code(s): T56.892A - Toxic effect of other metals, intentional self-harm, initial encounter Status: Acute Assessment and Plan: -intentional overdose of 40 pills of lithium at 5:30 p.m. 09/10/2020 -EKG shows normal sinus rhythm rate 79, QTC 448 -continue watching on telemetry, looking out for QTC prolongation and bradycardia -lithium level 0.6 will continue to watch -seizure precautions, suicide precautions -patient received 2 L normal saline bolus, will continue IV fluids normal saline 125 cc/hour to help with clearance -poison Control notified -patient will need psychiatric care (2) Hypothyroidism: Code(s): E03.9 - Hypothyroidism, unspecified Status: Chronic Assessment and Plan: Synthroid (3) Diabetes: Code(s): E11.9 - Type 2 diabetes mellitus without complications Status: Chronic Assessment and Plan: Diet controlled. migraines: Topiramate, Fioricet, ubrogepant -bipolar disorder: On lithium, nortriptyline, alprazolam, bupropion -insomnia: Trazodone -chronic low back pain: History of surgery, on [place] Transfer Discharge Sum: Med Medications Active and Home Medications: Home Medications alprazolam 0.5 mg PO BID 07/24/19 [History Confirmed 09/10/20] bupropion HCl 300 mg PO DAILY 07/24/19 [History Confirmed 09/10/20] qyuccckhrp-trsgadqktbsuk-jwoz 1 tablet PO Q4H PRN 07/24/19 [History Confirmed 09/10/20] lithium carbonate 300 mg PO DAILY 07/24/19 [History Confirmed 09/10/20] topiramate 100 mg PO BID 07/24/19 [History Confirmed 09/10/20] levothyroxine 175 mcg PO DAILY 09/10/20 [History Confirmed 09/10/20] oxycodone-acetaminophen 1 tablet PO Q6H PRN 09/10/20 [History Confirmed 09/10/20] ubrogepant [Ubrelvy] 50 mg PO DAILY PRN 09/10/20 [History Confirmed 09/10/20] Transfer Discharge Sum: Hosp Hospital Course Hospital course: Patient was seen during the morning rounds today. Patient is more awake and alert. No shortness of breath or chest pain. No abdominal pain nausea or vomiting. Mood stable. Pt is accepted by Psych facility. Pt voluntarily transferred to psych facility. Time Spent with Patient Time attestation: Total time spent providing and/or coordinating transfer services:40 minutes on the day of transfer Exam Narrative: Exam Narrative: Const: General: tired appearing HENMT: Head: normocephalic Eyes: General: appearance normal, both eyes and all related structures Pupils: Equal, round and reactive pupils present Neck: Neck: supple Chest: Chest palpation & inspection: normal inspection of the chest Resp: Effort & Inspection: normal respiratory effort Auscultation: clear to auscultation bilaterally Cardio: Jugular venous distension: no JVD Rhythm: regular rhythm Heart sounds: S1 normal heart sound present and S2 normal heart sound present GI: Inspection: normal to inspection GI Palp: No abdominal tenderness, Yes Soft to palpation and No Tenderness to palpation present (GI) Auscultation: normal bowel sounds Skin: General skin exam: normal color and dry skin Neuro: Cranial nerves: Yes CN's II-XII intact bilaterally and Yes Equal, round and reactive pupils present Cognition (Neuro): normal cognition Speech: normal speech Motor exam (neuro): 5/5 motor strength present th
== END 2020-09-13 10:10 | DRG 918 ==
LOC: ANHED 18:58 → ANHICU 20:30
PROVIDERS: Internal Medicine; Student in an Organized Health Care Education/Training Program; Admitting Provider Internal Medicine; Emergency Provider Emergency Medicine; PCP Family Medicine Adolescent Medicine; Visit Provider Family Medicine
DX: T43.592A Poisoning by other antipsychotics and neuroleptics, intentional self-harm, initial encounter (principal); Z20.828 Contact with and (suspected) exposure to other viral communicable diseases; R45.89 Other symptoms and signs involving emotional state; R74.01 Elevation of levels of liver transaminase levels; F31.9 Bipolar disorder, unspecified; E11.9 Type 2 diabetes mellitus without complications; E03.9 Hypothyroidism, unspecified; G47.00 Insomnia, unspecified; G43.909 Migraine, unspecified, not intractable, without status migrainosus; M54.5 Low back pain; G89.29 Other chronic pain; Z98.890 Other specified postprocedural states; Z63.5 Disruption of family by separation and divorce; Z79.899 Other long term (current) drug therapy; Z87.891 Personal history of nicotine dependence
CPT/HCPCS: 36415; 80053; 80178; 80307; 81003; 83735; 83930; 84100; 84702; 85025; 85027; 85610; 85730; 87635; 93005; 96361; 96372; 96374; 99285; A9270; C9803; G0378; J1644; J2060; J7030; U0003

== ENCOUNTER 2020-11-16 17:51 | Emergency (ER) | payer MEDICARE, MEDICAID, SELFPAY ==
--- NOTE | ~2020-11-16 | XR_ITS ---
EXAMINATION: XR chest 2V DATE: 11/16/2020 19:01 INDICATION: Left-sided chest pain and nausea TECHNIQUE: AP and lateral views of the chest are obtained. COMPARISON: None available FINDINGS: The lungs are free of acute opacities. There is no pleural effusion or pneumothorax. The ca rdiomediastinal silhouette is normal. There is mild thoracic spondylosis. A partially imaged lumbar f usion hardware is noted. IMPRESSION: 1. No acute cardiopulmonary abnormality. Reviewed, dictated and finalized at location A. R INSTALLER
--- NOTE | 2020-11-16 18:16 | ECG_ITS ---
Measurements Intervals [place] Rate: 71 P: 47 VA: 170 QRS: 32 QRSD: 96 T: 43 QT: 445 QTc: 486 Interpretive Statements SINUS RHYTHM NORMAL ECG Electronically Signed On 11-16-2020 18:23:59 DATA ENTRY MANAGER by Kenneth Allison D.O.
[2020-11-16 19:23] VITALS: BP 112/67; PULSE 71; RESP 16; TEMP 36.2; O2SAT 100
[2020-11-16 19:39] LABS: Basophils Absolute Auto 0.1 K/mm3 (0.0-0.1); Basophils Percent Auto 0.9 % (0.2-1.2); Eosinophils Absolute Auto 0.5 K/mm3 (0-0.3); Eosinophils Percent Auto 3.5 % (0-4.4); Hemoglobin 13.8 g/dL (12.0-15.0); Immature Granulocyte Absolute 0.03 K/mm3 (0.00-0.031); Immature Granulocyte Percent A 0.2 % (0-0.5); Lymphocytes Absolute Auto 5.09 K/mm3 (0.9-3.2); Lymphocytes Percent Auto 36.6 % (18.3-44.2); Mean Corpuscular HGB Conc 33.7 g/dl (32-36); Mean Corpuscular Hemoglobin 29.7 pg (26-34); Mean Corpuscular Volume 88.4 fl (80-100); Mean Platelet Volume 9.4 fl (7.4-10.4); Monocytes Absolute Auto 0.7 K/mm3 (0.1-0.6); Monocytes Percent Auto 4.8 % (2.6-8.5); Neutrophils Absolute Auto 7.5 K/mm3 (1.3-6.7); Platelet Count Result 313 k/mm3 (150-375); Red Blood Count 4.64 M/mm3 (4.2-5.4); Red Cell Distribution Width 13.2 % (11.5-14.5); White Blood Count 13.9 K/mm3 (4.5-10.0)
[2020-11-16 19:51] LABS: Anion Gap 12 mmol/L (8-16); Blood Urea Nitrogen 17 mg/dL (7-17); Calcium 9.7 mg/dL (8.4-10.2); Carbon Dioxide 26 mmol/L (22-30); Chloride 104 mmol/L (98-107); Estimated Glomerular Filt Rate 44; Glucose 101 mg/dL (65-105); Potassium 3.6 mmol/L (3.4-5.0); Sodium 142 mmol/L (137-145)
[2020-11-16 19:53] LABS: Prothrombin Time 13.4 Seconds (11.1-14.7)
[2020-11-16 20:03] LABS: Troponin I < 0.012 ng/mL (0.000-0.034)
== END 2020-11-16 22:49 | disposition left against medical advice (07) ==
LOC: ANHED 21:45
PROVIDERS: Emergency Provider Emergency Medicine; PCP Family Medicine Adolescent Medicine
DX: R07.9 Chest pain, unspecified (principal)
CPT/HCPCS: 36415; 71046; 80048; 84484; 85025; 85610; 85730; 93005; 99199

== ENCOUNTER 2020-11-17 12:31 | Emergency (ER) | payer MEDICARE, MEDICAID, SELFPAY ==
--- NOTE | ~2020-11-17 | XR_ITS ---
EXAMINATION: XR chest 2V DATE: 11/17/2020 14:10 INDICATION: Chest tightness. TECHNIQUE: Frontal and lateral views of the chest were obtained. COMPARISON: Chest 2 views 11/16/2020 FINDINGS: The chest demonstrates clear lungs without pneumonia, pleural effusion, or pneumothorax. Th e heart size is normal. Surgical clips in the right upper quadrant are likely from cholecystectomy. IMPRESSION: 1. No acute cardiopulmonary disease. Reviewed, dictated and finalized at location A. TABOUT
--- NOTE | 2020-11-17 12:32 | ECG_ITS ---
Measurements Intervals [place] Rate: 84 P: 43 UT: 162 QRS: 14 QRSD: 94 T: 14 QT: 399 QTc: 474 Interpretive Statements SINUS RHYTHM BASELINE ARTIFACT- II, III, AVL, AVF NORMAL ECG Electronically Signed On 11-17-2020 13:06:58 RIVER CAPTAIN by Kenneth Allison D.O.
[2020-11-17 12:39] VITALS: BP 118/92; PULSE 80; RESP 16; TEMP 36.2; O2SAT 100
[2020-11-17 13:14] LABS: Basophils Absolute Auto 0.1 K/mm3 (0.0-0.1); Basophils Percent Auto 0.8 % (0.2-1.2); Eosinophils Absolute Auto 0.4 K/mm3 (0-0.3); Eosinophils Percent Auto 3.1 % (0-4.4); Hematocrit 39.6 % (37.0-47.0); Hemoglobin 13.4 g/dL (12.0-15.0); Immature Granulocyte Absolute 0.04 K/mm3 (0.00-0.031); Immature Granulocyte Percent A 0.3 % (0-0.5); Lymphocytes Absolute Auto 2.69 K/mm3 (0.9-3.2); Lymphocytes Percent Auto 21.6 % (18.3-44.2); Mean Corpuscular HGB Conc 33.8 g/dl (32-36); Mean Corpuscular Hemoglobin 30.2 pg (26-34); Mean Corpuscular Volume 89.4 fl (80-100); Mean Platelet Volume 9.7 fl (7.4-10.4); Monocytes Absolute Auto 0.6 K/mm3 (0.1-0.6); Monocytes Percent Auto 4.8 % (2.6-8.5); Neutrophils Absolute Auto 8.6 K/mm3 (1.3-6.7); Neutrophils Percent Auto 69.4 % (45.5-73.1); Platelet Count Result 313 k/mm3 (150-375); Red Blood Count 4.43 M/mm3 (4.2-5.4); Red Cell Distribution Width 13.2 % (11.5-14.5); White Blood Count 12.5 K/mm3 (4.5-10.0)
[2020-11-17 13:27] LABS: Anion Gap 6 mmol/L (8-16); Blood Urea Nitrogen 14 mg/dL (7-17); Calcium 9.1 mg/dL (8.4-10.2); Carbon Dioxide 30 mmol/L (22-30); Chloride 107 mmol/L (98-107); Estimated CRCL calculation 45 ml/min; Estimated Glomerular Filt Rate 44; Glucose 86 mg/dL (65-105); INR 0.9; Potassium 3.8 mmol/L (3.4-5.0); Prothrombin Time 12.9 Seconds (11.1-14.7); Sodium 143 mmol/L (137-145)
[2020-11-17 13:28] LABS: Partial Thromboplastin Time 30.9 SECONDS (22.3-36.8)
[2020-11-17 13:39] LABS: Troponin I < 0.012 ng/mL (0.000-0.034)
[2020-11-17 13:49] VITALS: BP 122/82; PULSE 76; RESP 13; O2SAT 100
[2020-11-17 13:52] VITALS: PULSE 74
[2020-11-17 14:31] LABS: D Dimer 0.31 ug/mL (<0.48)
[2020-11-17 14:36] VITALS: BP 132/73; PULSE 74; RESP 23; O2SAT 98
[2020-11-17] MEDS: KETOROLAC 30 MG/ML VIAL (*BKC) IV PUSH (14:36)
[2020-11-17 16:10] LABS: Troponin I < 0.012 ng/mL (0.000-0.034)
[2020-11-17 16:11] VITALS: BP 120/68; PULSE 70; RESP 18; O2SAT 98
--- NOTE | 2020-11-17 16:31 | ED.CHESTPAIN ---
HPI - Chest Pain General Chief Complaint: Chest Pain Stated Complaint: chest hurts Time Seen by Provider: 11/17/20 13:22 History of Present Illness HPI narrative: Patient is a 45-year-old female who presents ER with left-sided chest pain. Began today while driving back from a dentist appointment in [facility]. Cramping left-sided moving to the shoulder. No runny nose/sore throat/productive cough. No shortness of breath or hemoptysis. No lower extremity swelling. No previous PE. Is not taking any pain medication. Cannot describe any aggravating or alleviating factors. Related Data Home Medications Medication Instructions Recorded Confirmed alprazolam 0.5 mg PO BID 07/24/19 09/10/20 bupropion HCl 300 mg PO DAILY 07/24/19 09/10/20 wzsawpdrwq-cyrmhxthhznwx-adnp 1 tablet PO Q4H PRN 07/24/19 09/10/20 lithium carbonate 300 mg PO DAILY 07/24/19 09/10/20 topiramate 100 mg PO BID 07/24/19 09/10/20 levothyroxine 175 mcg PO DAILY 09/10/20 09/10/20 oxycodone-acetaminophen 1 tablet PO Q6H PRN 09/10/20 09/10/20 ubrogepant [Ubrelvy] 50 mg PO DAILY PRN 09/10/20 09/10/20 Allergies Allergy/AdvReac Type Severity Reaction Status Date / Time morphine Allergy Severe Hives Verified 11/17/20 13:53 Review of Systems Review of Systems: All systems reviewed & are unremarkable except as noted in HPI and below Constitutional: Constitutional: Denies chills and Denies fever(s) ENT: Denies nasal congestion and Denies sore throat Cardiovascular: Cardiovascular: Reports chest pain, Denies rapid heart rate and Reports radiating jaw, neck or arm pain Respiratory: Respiratory: Denies cough, Denies dyspnea and Denies wheezing Gastrointestinal: Gastrointestinal: Denies abdominal pain, Denies nausea and Denies vomiting Musculoskeletal: Musculoskeletal: Denies back pain and Denies muscle cramps FOR[facility]LY [facility], [facility] Past Medical History Medical History (Updated 11/17/20 @ 16:34 by Derik Connors MD) Bipolar 1 disorder Depression Hypothyroidism Insomnia Type 2 diabetes mellitus Family History Family History (Updated 09/10/20 @ 23:16 by Stacie De Paz RN) Father Acute myocardial infarction Colon cancer Congestive heart failure Diabetes mellitus Hypertension Mother Acute myocardial infarction Diabetes mellitus Hypertension Sibling Asthma Other Bipolar disorder Heart disease Schizophrenia Social History Social History (Updated 09/10/20 @ 21:18 by Tom Styles DO) Social History: Going through a divorce, she has 2 boys who do not live with her. Smoking status: Former smoker Smoking end date: 09/16/99 Alcohol intake: never Substance use: current Substance use type: marijuana Last use: 09/09/20 Additional occupation/education comments: Disability for her back problems since 2012 Gender identity (if verbalized by the patient): Female Spiritual care concerns: No Exam Narrative: Exam Narrative: GENERAL: Well-appearing, well-nourished, and in no acute distress. HEAD: Normocephalic, atraumatic. CHEST: Clear to auscultation. No respiratory distress. Reproducible tenderness left chest wall. HEART: Regular rate and rhythm. Normal peripheral pulses. ABDOMEN: Soft, nontender, nondistended. EXTREMITIES: Normal range of motion. No edema. SKIN: Warm, dry, no rash. NEURO: Alert and oriented x3. PSYCH: Normal mood and affect. Course Course Emergency Course: Pain improved with Toradol. 2 set troponin negative. Symptoms felt to be related to muscle cramping. Vital Signs Vital signs: Vital Signs Temperature 97.1 F L 11/17/20 12:39 Pulse Rate 80 11/17/20 12:39 Respiratory Rate 16 11/17/20 12:39 Blood Pressure 118/92 H 11/17/20 12:39 Pulse Oximetry 100 11/17/20 12:39 Temperature 97.1 F L 11/17/20 12:39 Pulse Rate 70 11/17/20 16:11 Respiratory Rate 18 11/17/20 16:11 Blood Pressure 120/68 11/17/20 16:11 Pulse Oximetry 98 11/17/20 16:11 MDM - C
[2020-11-17 16:55] VITALS: BP 123/84; PULSE 74; RESP 22; O2SAT 99
== END 2020-11-17 16:56 | disposition home or self-care (01) ==
PROVIDERS: Emergency Provider Emergency Medicine; PCP Family Medicine Adolescent Medicine
DX: R07.9 Chest pain, unspecified (principal); E03.9 Hypothyroidism, unspecified; E11.9 Type 2 diabetes mellitus without complications; F31.9 Bipolar disorder, unspecified; Z87.891 Personal history of nicotine dependence
CPT/HCPCS: 36415; 71046; 80048; 84484; 85025; 85380; 85610; 85730; 93005; 96374; 99284; J1885

== ENCOUNTER 2020-11-27 23:35 | Emergency (ER) | payer MEDICARE, MEDICAID, SELFPAY ==
--- NOTE | ~2020-11-27 | CT_ITS ---
EXAMINATION: CT facial & cervical spine wo DATE: 11/28/2020 00:34 INDICATION: Head injury. TECHNIQUE: Computed tomography (CT) of the maxillofacial region and cervical spine was performed with out intravenous contrast. Automated exposure control and iterative reconstruction technique were empl oyed. The dose-length product was 545.82 mGy-cm. COMPARISON: None FINDINGS: MAXILLOFACIAL CT: There is rightward deviation of the nasal septum. No fracture. The orbits are normal. The paranasal s inuses are clear. The mastoid air cells are normal. CERVICAL SPINE CT: There is 3 mm retrolisthesis of C5 on C6. There is interbody fusion at C5-C6. Vertebral body heights are normal. Intervertebral disc heights are normal. The following disc levels are specifically discus sed: C2-C3: There is no uncovertebral joint osteoarthritis. There is mild bilateral facet joint osteoarthr itis. There is no neural foraminal stenosis. There is no central canal stenosis. C3-C4: There is no uncovertebral joint osteoarthritis. There is mild right and moderate left facet cheryl int osteoarthritis. There is mild left neural foraminal stenosis. There is mild central canal stenosi s. C4-C5: There is mild left uncovertebral joint osteoarthritis. There is severe left facet joint osteoa rthritis. There is mild left neural foraminal stenosis. There is mild central canal stenosis. C5-C6: There is ankylosis of the uncovertebral joints with severe right and moderate left hypertrophy . There is ankylosis of the facet joints with moderate hypertrophy. There is mild bilateral neural fo raminal stenosis. There is mild central canal stenosis. C6-C7: There is no uncovertebral joint osteoarthritis. There is no facet joint osteoarthritis. There is no neural foraminal stenosis. There is no central canal stenosis. C7-T1: There is no uncovertebral joint osteoarthritis. There is mild bilateral facet joint osteoarthr itis. There is no neural foraminal stenosis. There is no central canal stenosis. IMPRESSION: 1. No fracture. 2. Mild cervical spondylosis. 3. Anterior and posterior fusion at C5-C6. Reviewed, dictated and finalized at location A.
--- NOTE | ~2020-11-27 | XR_ITS ---
EXAMINATION: XR shoulder LT min 2V DATE: 11/28/2020 00:42 INDICATION: Left shoulder pain. TECHNIQUE: 5 views of left shoulder were obtained. COMPARISON: None. FINDINGS: Bone alignment is normal. No fracture. There is mild osteoarthritis of glenohumeral joint a nd moderate osteoarthritis of acromioclavicular joint. IMPRESSION: 1. Polyarticular osteoarthritis. Reviewed, dictated and finalized at location A.
--- NOTE | ~2020-11-27 | CT_ITS ---
EXAMINATION: CT brain wo con DATE: 11/28/2020 00:33 INDICATION: Head injury. TECHNIQUE: Computed tomography (CT) of the head was performed without intravenous contrast. The mA wa s adjusted according to patient size. Iterative reconstruction technique was employed. The dose-lengt h product was 605.33 mGy-cm. COMPARISON: Head CT 07/08/2007 FINDINGS: There is no intracranial hemorrhage, acute infarction, or abnormal intracranial mass lesion . The ventricles are normal in size. The paranasal sinuses are clear. The orbits are normal. The mast oid air cells are normal. IMPRESSION: 1. Normal brain. Reviewed, dictated and finalized at location A. IMPRESSION: 1. Normal brain.
[2020-11-27 23:44] VITALS: BP 141/85; PULSE 101; RESP 16; TEMP 36.9; O2SAT 100
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
--- NOTE | 2020-11-28 00:18 | PC.NURSE ---
Pt. to CT
[2020-11-28 00:44] VITALS: BP 130/93; PULSE 89; RESP 20
[2020-11-28 01:31] VITALS: BP 126/83; PULSE 80; RESP 20; O2SAT 97
[2020-11-28 01:49] VITALS: TEMP 37
== END 2020-11-28 01:50 | disposition home or self-care (01) ==
PROVIDERS: Emergency Provider Emergency Medicine; PCP Family Medicine Adolescent Medicine
DX: S00.83XA Contusion of other part of head, initial encounter (principal); F31.9 Bipolar disorder, unspecified; E03.9 Hypothyroidism, unspecified; E11.9 Type 2 diabetes mellitus without complications; Z87.891 Personal history of nicotine dependence; M47.812 Spondylosis without myelopathy or radiculopathy, cervical region; M43.22 Fusion of spine, cervical region; M19.012 Primary osteoarthritis, left shoulder; Y04.2XXA Assault by strike against or bumped into by another person, initial encounter
CPT/HCPCS: 70450; 70486; 72125; 73030; 99284

== ENCOUNTER 2021-01-17 19:48 | Emergency (ER) | payer OTHER, MEDICARE, MEDICAID, SELFPAY ==
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
[2021-01-17 19:52] VITALS: BP 132/79; PULSE 86; RESP 16; TEMP 36.2; O2SAT 98
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
[2021-01-17] MEDS: KETOROLAC 30 MG/ML VIAL (*BKC) IM (20:44)
[2021-01-17 20:49] VITALS: BP 126/98; PULSE 78; RESP 20; O2SAT 98
== END 2021-01-17 20:53 | disposition home or self-care (01) ==
PROVIDERS: Emergency Provider Nurse Practitioner; PCP Family Medicine Adolescent Medicine
DX: M54.5 Low back pain (principal); V43.52XA Car driver injured in collision with other type car in traffic accident, initial encounter; F31.9 Bipolar disorder, unspecified; E03.9 Hypothyroidism, unspecified; E11.9 Type 2 diabetes mellitus without complications
CPT/HCPCS: 72100; 72125; 96372; 99284; J1885

== ENCOUNTER 2021-01-24 12:44 | Emergency (ER) | payer MEDICARE, MEDICAID, SELFPAY ==
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
[2021-01-24 14:20] VITALS: BP 147/86; PULSE 77; RESP 20; TEMP 36; O2SAT 100
[2021-01-24 15:00] VITALS: BP 147/86; PULSE 77; RESP 20; TEMP 36; O2SAT 100
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
[2021-01-24] MEDS: METAXALONE 800 MG TABLET PO (16:30)
[2021-01-24] MEDS: KETOROLAC 30 MG/ML VIAL (*BKC) IV PUSH (16:39)
[2021-01-24 16:40] VITALS: BP 154/75; PULSE 72; RESP 18; O2SAT 100
== END 2021-01-24 16:40 | disposition home or self-care (01) ==
PROVIDERS: Emergency Provider Emergency Medicine; PCP Family Medicine Adolescent Medicine
DX: M54.5 Low back pain (principal); F31.9 Bipolar disorder, unspecified; E03.9 Hypothyroidism, unspecified; E11.9 Type 2 diabetes mellitus without complications; M16.0 Bilateral primary osteoarthritis of hip
CPT/HCPCS: 72100; 73502; 96374; 99284; A9270; J1885

== ENCOUNTER 2021-02-06 20:11 | Emergency (ER) | payer MEDICARE, MEDICAID, SELFPAY ==
--- NOTE | 2021-02-06 20:27 | PC.NURSE ---
Patient states she does not wish to be seen after being called into triage. Patient states she feel 100% better and does not want to be seen. Patient verbalized understanding she is welcome to return to ED if symptoms return. IV was discontinued prior to patient leaving.
== END 2021-02-06 20:27 | disposition left against medical advice (07) ==
PROVIDERS: PCP Family Medicine Adolescent Medicine
DX: Z53.21 Procedure and treatment not carried out due to patient leaving prior to being seen by health care provider (principal)
CPT/HCPCS: 99199

== ENCOUNTER 2021-04-24 17:58 | Observation (INO) | payer MEDICARE, MEDICAID, SELFPAY ==
[2021-04-24] VITALS (9 sets, daily range): BP systolic 111–144; BP diastolic 72–92; PULSE 75–91; RESP 11–41; TEMP 36.4; O2SAT 99–100
--- NOTE | 2021-04-24 18:03 | ECG_ITS ---
Measurements Intervals [place] Rate: 82 P: 45 NC: 176 QRS: 27 QRSD: 98 T: 42 QT: 401 QTc: 471 Interpretive Statements SINUS RHYTHM BASELINE ARTIFACT- I, III, AVR, AVL, V2-V6 NORMAL ECG Electronically Signed On 04-24-2021 20:03:29 CDT by Kenneth Allison D.O.
[2021-04-24 18:06] LABS: Alveolar/Arterial O2 Gradient 35.3 mmHg; Base Excess ABG -0.5 mEq/l (+/-2.0); Fractional Inspired Oxygen 21 %; HCO3 ABG 21.8 mEq/l (22.0-26.0); Modified Allen's Test Unable to perform; Oxygen Content ABG 17.6 %vol (16.0-22.0); Oxygen Saturation ABG 96.6 % (95.0-100.0); Oxyhemoglobin 94.8 % THb (90.0-100.0); PCO2 ABG 29.5 mmHg (35.0-45.0); PO2 ABG 79.1 mmHg (80.0-100.0); PO2 FiO2 Ratio Arterial Blood 3.77 %; Site Drawn RIGHT RADIAL; Total Hemoglobin 13.2 g/dL (12.0-18.0); pH ABG 7.487 (7.350-7.450)
[2021-04-24 18:07] LABS: Device ROOM AIR
[2021-04-24 18:09] LABS: Glucose Point of Care 121 mg/dl (65-105)
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
--- NOTE | 2021-04-24 18:29 | PC.NURSE ---
RN spoke with Poison Control. Medication range of 20-80 tablets is hard to diagnose. Oxycodone peak is 3 hours. Pt will get worse before gets better. Greater than 10gm of Tylenol is considered Toxic. Draw a Tylenol level and repeat it in 4 hours. Symptomatic treatment for NURSING PROGRAM MANAGER and Resp Depression. Start normal SI work up.
[2021-04-24 18:35] LABS: Basophils Absolute Auto 0.1 K/mm3 (0.0-0.1); Eosinophils Absolute Auto 0.3 K/mm3 (0-0.3); Eosinophils Percent Auto 2.9 % (0-4.4); Hematocrit 40.6 % (37.0-47.0); Hemoglobin 13.9 g/dL (12.0-15.0); Immature Granulocyte Absolute 0.04 K/mm3 (0.00-0.031); Immature Granulocyte Percent A 0.4 % (0-0.5); Lymphocytes Absolute Auto 3.35 K/mm3 (0.9-3.2); Lymphocytes Percent Auto 31.7 % (18.3-44.2); Mean Corpuscular HGB Conc 34.2 g/dl (32-36); Mean Corpuscular Hemoglobin 29.6 pg (26-34); Mean Corpuscular Volume 86.6 fl (80-100); Mean Platelet Volume 10.1 fl (7.4-10.4); Monocytes Absolute Auto 0.6 K/mm3 (0.1-0.6); Monocytes Percent Auto 5.7 % (2.6-8.5); Neutrophils Absolute Auto 6.2 K/mm3 (1.3-6.7); Neutrophils Percent Auto 58.3 % (45.5-73.1); Platelet Count Result 278 k/mm3 (150-375); Red Blood Count 4.69 M/mm3 (4.2-5.4); Red Cell Distribution Width 13.1 % (11.5-14.5); White Blood Count 10.6 K/mm3 (4.5-10.0)
[2021-04-24 18:44] LABS: Lactic Acid Reflex 1.1 mmol/L (0.7-2.1)
[2021-04-24 18:46] LABS: Acetaminophen 39 ug/mL (10-30); Ethanol < 10 mg/dL (<10); Salicylate < 1.0 mg/dL (2-20)
--- NOTE | 2021-04-24 18:46 | PC.NURSE ---
Called and spoke to Citlali to add on Acetaminophen 184
[2021-04-24 18:48] LABS: Alanine Aminotransferase 47 U/L (4-35); Albumin Level 4.5 g/dL (3.5-5.1); Alkaline Phosphatase 141 U/L (38-126); Anion Gap 11 mmol/L (8-16); Aspartate Amino Transferase 32 U/L (14-36); Bilirubin,Total 0.2 mg/dL (0.2-1.3); Blood Urea Nitrogen 18 mg/dL (7-17); Calcium 9.7 mg/dL (8.4-10.2); Carbon Dioxide 24 mmol/L (22-30); Chloride 104 mmol/L (98-107); Estimated CRCL calculation 53 ml/min; Estimated Glomerular Filt Rate 41; Glucose 102 mg/dL (65-110); Potassium 3.7 mmol/L (3.4-5.0); Sodium 139 mmol/L (137-145)
[2021-04-24 18:49] LABS: Add Urine Microscopic? YES; Appearance Urine Cloudy (Clear); Bacteria Urine Trace /hpf; Bilirubin Urine Negative (Negative); Blood Urine Negative (Negative); Color Urine Yellow (Yellow); Glucose Urine UA Negative (Negative); Ketones Urine Negative (Negative); Leukocyte Esterase Ur 1+ LEU/UL (Negative); Mucus Urine Rare /lpf; Nitrate Urine Positive (Negative); Protein Urine Negative (Negative); RBC Urine 0-2 /hpf (0-2); Specific Grav Ur 1.019 (1.001-1.035); Squamous Epithelial Cell Urine Many /hpf (Few); WBC Urine 31-50 /hpf
[2021-04-24 19:00] LABS: Amphetamine Screen Urine Negative (Negative); Barbiturate Screen Urine Negative (Negative); Benzodiazepines Screen Urine Negative (Negative); Cannabinoid Screen Urine Positive (Negative); Cocaine Screen Urine Positive (Negative); Methadone Screen Urine Negative (Negative); Opiate Screen Urine Positive (Negative); Phencyclidine Screen Urine Negative (Negative)
[2021-04-24 19:21] LABS: Acetaminophen 38 ug/mL (10-30)
[2021-04-24 19:31] LABS: EDCOVIDSCREEN Negative (Negative)
[2021-04-24] MEDS: ACETYLCYSTEINE IV 15,000 MG in DEXTROSE 5% IN WATER 200 ML 275 MG IVPB (21:20)
[2021-04-24] MEDS: SODIUM CHLORIDE 0.9% IV 1,000 ML 125 ML IV CONT (22:12)
[2021-04-24] MEDS: ONDANSETRON INJ 4 MG/2 ML VIAL IV PUSH (22:12)
--- NOTE | 2021-04-24 22:32 | PC.NURSE ---
Priscila from poison control called to get condition report, update labs, meds, VS and neuro update given. Order for acetaminophen 4 hour level recommended and ordered per Dr. Miller.
[2021-04-24] MEDS: ACETYLCYSTEINE IV 5,000 MG in DEXTROSE 5% IN WATER 500 ML 131.25 MG IVPB (22:51)
[2021-04-24 23:16] LABS: Acetaminophen 31 ug/mL (10-30)
[2021-04-25] VITALS (9 sets, daily range): BP systolic 113–138; BP diastolic 72–86; PULSE 74–86; RESP 12–20; O2SAT 98–100; BMI 33.3
--- NOTE | 2021-04-25 03:05 | PC.NURSE ---
tylenol level sent to lab with a jic label
[2021-04-25 03:15] LABS: Acetaminophen < 10 ug/mL (10-30)
--- NOTE | 2021-04-25 04:00 | PC.NURSE ---
updated pt's son on pt's status.
--- NOTE | 2021-04-25 05:27 | PC.NURSE ---
talked to poison control. they recommend stopping the acetylcysteine.
--- NOTE | 2021-04-25 05:49 | PC.NURSE ---
acetylcysteine stopped per poison control and Acetaminophen level at 10.
--- NOTE | 2021-04-25 07:09 | PC.NURSE ---
report from DOMINIC Christianson. care assumed at this time.
[2021-04-25 08:41] LABS: Acetaminophen < 10 ug/mL (10-30)
--- NOTE | 2021-04-25 10:39 | PC.NURSE ---
This RN overheard pt talking on phone about a potential elopement plan. Pt also heard discussing how upset she was at provider that came to see her in department. ED Charge made aware.
--- NOTE | 2021-04-25 10:40 | PC.NURSE ---
Per Monica, RN at Poison Control, this patient would be appropriate for physician to consider medically cleared. Per Monica, the peak of hydrocodone is 3 hours and tylenol is 4 hours; if patient is not needing any new interventions, then patient would be appropriate to be downgraded from ICU status.
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
--- NOTE | 2021-04-25 11:16 | PC.NURSE ---
report to DOMINIC Michaels
--- NOTE | 2021-04-25 13:36 | PC.NURSE ---
Melo removed without difficulty. Patient lpn care manager / sitter assisting patient to wash up and change scrubs. Dietary called for lunch with precautions. No further needs at this time
--- NOTE | 2021-04-25 14:10 | PC.NURSE ---
BS checked at 75. Pt with lunch tray with appropriate precautions
[2021-04-25 14:11] LABS: Glucose Point of Care 75 mg/dl (65-105)
--- NOTE | 2021-04-25 14:13 | PC.NURSE ---
Attempted to call patient's son, no answer and no voicemail. OK to contact per patient
--- NOTE | 2021-04-25 14:22 | PC.NURSE ---
Called patient's son ([phone]) with permission of patient and gave update.
--- NOTE | 2021-04-25 15:08 | PCCCNOTE ---
Spoke with Dr Styles. Patient has been medically cleared. Crisis called and will be here within 90 minutes
--- NOTE | 2021-04-25 15:15 | PC.NURSE ---
Lilibeth from Crisis called to report she is on her way.
--- NOTE | 2021-04-25 15:57 | PC.NURSE ---
Pt updated and alert and aware moving to room 15 to await Crisis eval and placement. Discussed POC. Pt declines RR at this time or any other needs. Phone removed. Pt VSSEtta Mcelroy from Crisis here for eval at this time. Assumed care of pt.
--- NOTE | 2021-04-25 18:26 | PC.NURSE ---
ADMITTED TO ICU A MED/SURG SI PATIENT.
[2021-04-25 18:49] LABS: Glucose Point of Care 86 mg/dl (65-105)
[2021-04-26 06:00] VITALS: BP 119/56; PULSE 76; RESP 16
[2021-04-26 08:00] VITALS: PULSE 67; RESP 22; O2SAT 97
[2021-04-26 08:47] LABS: Hematocrit 38.6 % (37.0-47.0); Hemoglobin 13.1 g/dL (12.0-15.0); Mean Corpuscular HGB Conc 33.9 g/dl (32-36); Mean Corpuscular Hemoglobin 30.1 pg (26-34); Mean Corpuscular Volume 88.7 fl (80-100); Mean Platelet Volume 9.9 fl (7.4-10.4); Platelet Count Result 241 k/mm3 (150-375); Red Blood Count 4.35 M/mm3 (4.2-5.4); Red Cell Distribution Width 13.1 % (11.5-14.5); White Blood Count 8.9 K/mm3 (4.5-10.0)
[2021-04-26 09:01] LABS: Glucose Point of Care 60 mg/dl (65-105)
[2021-04-26 09:02] LABS: Alanine Aminotransferase 39 U/L (4-35); Albumin Level 3.9 g/dL (3.5-5.1); Alkaline Phosphatase 130 U/L (38-126); Anion Gap 11 mmol/L (8-16); Aspartate Amino Transferase 25 U/L (14-36); Bilirubin,Total 0.2 mg/dL (0.2-1.3); Blood Urea Nitrogen 9 mg/dL (7-17); Calcium 9.6 mg/dL (8.4-10.2); Carbon Dioxide 21 mmol/L (22-30); Chloride 107 mmol/L (98-107); Estimated CRCL calculation 67 ml/min; Estimated Glomerular Filt Rate > 60; Glucose 83 mg/dL (65-110); Magnesium 1.8 mg/dL (1.6-2.3); Potassium 3.8 mmol/L (3.4-5.0); Sodium 139 mmol/L (137-145)
[2021-04-26 10:23] LABS: Glucose Point of Care 111 mg/dl (65-105)
[2021-04-26 12:45] LABS: Glucose Point of Care 75 mg/dl (65-105)
--- NOTE | 2021-04-26 14:37 | PM.IMPN ---
Progress Note: A&P Assessment and Plan (1) Type 2 diabetes mellitus: Qualifiers: Diabetes mellitus skilled nursing insulin use: without skilled nursing use Diabetes mellitus complication status: without complication Qualified Code(s): E11.9 - Type 2 diabetes mellitus without complications Code(s): E11.9 - Type 2 diabetes mellitus without complications Status: Acute (2) History of suicide attempt: Code(s): Z91.5 - Personal history of self-harm Status: Acute (3) Polydrug abuse: Code(s): F19.10 - Other psychoactive substance abuse, uncomplicated Status: Acute (4) Suicidal overdose: Qualifiers: Encounter type: initial encounter Qualified Code(s): T50.902A - Poisoning by unspecified drugs, medicaments and biological substances, intentional self-harm, initial encounter Code(s): T50.902A - Poisoning by unspecified drugs, medicaments and biological substances, intentional self-harm, initial encounter Status: Acute (5) Elevated transaminase level: Code(s): R74.01 - Elevation of levels of liver transaminase levels Status: Resolved (6) Hypothyroidism: Qualifiers: Hypothyroidism type: unspecified Qualified Code(s): E03.9 - Hypothyroidism, unspecified Code(s): E03.9 - Hypothyroidism, unspecified Status: Chronic (7) Asymptomatic urinary finding: Code(s): R82.90 - Unspecified abnormal findings in urine Status: Acute (8) Hyperlipidemia: Code(s): E78.5 - Hyperlipidemia, unspecified Status: Acute Additional Plan 45-year-old female with multiple medical problems in addition to bipolar disorder presented status post suicide attempt. She had ingested 20 [place] tablets. In the ED she was noted to have elevated Tylenol level and started on acetylcysteine. Subsequently, Tylenol yesterday started downtrending, as well as AST and ALT levels. ALT and AST levels are now normalizing. A she is medically cleared for next level of care. Time Spent With Patient Time with patient: 15 - 25 minutes Subjective Date/time seen: 04/26/21 14:37 Patient is doing well. No complaints reported. Labs appear to be downtrending. She is medically cleared Review of Systems Review of Systems: A 10 point review of system was conducted and was otherwise negative Exam Const: General: comfortable, no acute distress and well developed HENMT: Head: normal to inspection Ears: hearing grossly normal bilaterally General nose exam: Normal external nose present, Normal nares present and No nasal polyps present Mouth: Yes Normal oral and palatal mucosa present Teeth and gingiva: dentition normal Eyes: General: appearance normal, both eyes and all related structures Visual Brown: normal visual brown by confrontation Neck: Neck: normal visual inspection and full ROM Chest: Chest palpation & inspection: normal inspection of the chest Resp: Effort & Inspection: normal respiratory effort and able to speak in complete sentences Percussion: percussion normal Cardio: Jugular venous distension: no JVD Palpation: normal PMI Heart sounds: S1 normal heart sound present and S2 normal heart sound present GI: Inspection: normal to inspection Auscultation: normal bowel sounds Back/Spine/Pelvis: Back: no CVA tenderness Skin: General skin exam: normal color and no rashes or lesions noted Neuro: General: oriented to person, oriented to place, oriented to time and patient oriented x3 Extrem: General: normal to inspection and full ROM Psych: Speech and movement: Normal speech and movement present Objective Data Vital Signs Vital Signs: Vital Signs - 24 hr 04/25/21 15:53 04/25/21 17:32 04/25/21 17:49 Pulse Rate 86 76 76 Respiratory Rate 15 20 20 Blood Pressure 122/80 129/86 129/86 Pulse Oximetry 100 99 99 04/25/21 20:00 04/25/21 22:00 04/26/21 06:00 Pulse Rate 76 86 76 Respiratory Rate 20 16 16 Blood Pressure 120/81 119/56 L Pul
--- NOTE | 2021-04-26 16:28 | PM.DS ---
DS: Admitting Diagnosis Admitting Diagnosis Suicide ideation DS: Discharge Diagnosis Discharge Diagnosis (1) Hyperlipidemia: Qualifiers: Hyperlipidemia type: unspecified Qualified Code(s): E78.5 - Hyperlipidemia, unspecified Code(s): E78.5 - Hyperlipidemia, unspecified Status: Acute (2) Elevated transaminase level: Code(s): R74.01 - Elevation of levels of liver transaminase levels Status: Resolved (3) History of suicide attempt: Code(s): Z91.5 - Personal history of self-harm Status: Acute (4) Polydrug abuse: Code(s): F19.10 - Other psychoactive substance abuse, uncomplicated Status: Acute (5) Suicidal overdose: Qualifiers: Encounter type: initial encounter Qualified Code(s): T50.902A - Poisoning by unspecified drugs, medicaments and biological substances, intentional self-harm, initial encounter Code(s): T50.902A - Poisoning by unspecified drugs, medicaments and biological substances, intentional self-harm, initial encounter Status: Acute (6) Asymptomatic urinary finding: Code(s): R82.90 - Unspecified abnormal findings in urine Status: Acute (7) DVT prophylaxis: Code(s): Z29.9 - Encounter for prophylactic measures, unspecified Status: Acute (8) Hypothyroidism: Qualifiers: Hypothyroidism type: unspecified Qualified Code(s): E03.9 - Hypothyroidism, unspecified Code(s): E03.9 - Hypothyroidism, unspecified Status: Chronic DS: Summary Hospital Course Reason for hospitalization: Suicide ideation Hospital Course: 45-year-old former past medical history of bipolar disorder, depression, hypothyroidism, type 2 diabetes, history of suicide ideation, history of suicidal attempt previously presented with a suicide attempt after ingesting 20 pills of [place]. In the ED she was noted to have elevated ALT AST elevated Tylenol levels. She was started on acetylcysteine, which was later discontinued. Tylenol levels started to decline. Poison Control was also contacted to regarding condition. Patient started to improve and AST ALT levels were noted to be downtrending. She was started on home medications and is now being discharged in stable condition for her psychiatric stabilization. Status at Discharge Cognitive/behavioral status at discharge: suicidal ideation Time Spent with Patient Time attestation: Total time spent providing and/or coordinating discharge services: Greater than 35 minutes Time spent: Greater than 30 minutes Exam Const: General: cooperative and healthy appearing HENMT: Head: normal to inspection Ears: hearing grossly normal bilaterally General nose exam: Normal external nose present Eyes: General: appearance normal, both eyes and all related structures Neck: Neck: normal visual inspection, full ROM and supple Chest: Chest palpation & inspection: normal inspection of the chest Resp: Effort & Inspection: normal respiratory effort and able to speak in complete sentences Auscultation: clear to auscultation bilaterally Percussion: percussion normal Cardio: Rate: regular rate Rhythm: regular rhythm Heart sounds: S1 normal heart sound present and S2 normal heart sound present GI: Inspection: normal to inspection GI Palp: Yes Soft to palpation Percussion: Yes normal to percussion Auscultation: normal bowel sounds : General: Yes bimanual renal exam normal bilaterally Back/Spine/Pelvis: Back: no CVA tenderness Skin: General skin exam: normal color Neuro: General: oriented to person, oriented to place, oriented to time, gait normal, tone normal and moves all extremities Extrem: General: normal to inspection Psych: Speech and movement: Normal speech and movement present Affect: Labile affect present DS: Data Data Completed and Pending Labs on day of discharge: Labs from last 24 hours 04/26/21 04/26/21 04/26/21 12:43 10:20 08:57 WBC RBC Hgb Hct
[2021-04-26 17:42] LABS: Glucose Point of Care 73 mg/dl (65-105)
[2021-04-26] MEDS: TOPIRAMATE 100 MG TABLET PO (18:34)
== END 2021-04-26 19:02 | disposition other institution (70) ==
LOC: ANHED 20:23 → ANHICU 04-26 08:03
PROVIDERS: Internal Medicine; Admitting Provider Internal Medicine; Emergency Provider Emergency Medicine; PCP Family Medicine Adolescent Medicine; Visit Provider Internal Medicine
DX: T40.2X2A Poisoning by other opioids, intentional self-harm, initial encounter (principal); R45.851 Suicidal ideations; R74.01 Elevation of levels of liver transaminase levels; R82.90 Unspecified abnormal findings in urine; E78.5 Hyperlipidemia, unspecified; E11.9 Type 2 diabetes mellitus without complications; E03.9 Hypothyroidism, unspecified; F31.9 Bipolar disorder, unspecified; G47.00 Insomnia, unspecified; F19.10 Other psychoactive substance abuse, uncomplicated; Z98.1 Arthrodesis status; Z87.891 Personal history of nicotine dependence; Z91.5 Personal history of self-harm; Z20.822 Contact with and (suspected) exposure to COVID-19
CPT/HCPCS: 36415; 36600; 80053; 80307; 81001; 81025; 82248; 82805; 82948; 83605; 83735; 84443; 85025; 85027; 87077; 87086; 87186; 87426; 93005; 96365; 96366; 96368; 96375; 99285; A9270; C9803; G0378; J0132; J0696; J2310; J2405; J7030; J7060

== ENCOUNTER 2021-05-07 18:57 | Emergency (ER) | payer MEDICARE, MEDICAID, SELFPAY ==
--- NOTE | ~2021-05-07 | XR_ITS ---
EXAMINATION: XR chest 2V DATE: 05/07/2021 19:46 INDICATION: Weakness. Dizziness. Nausea. TECHNIQUE: Frontal and lateral views of the chest were obtained. COMPARISON: Chest 2 views 11/17/2020 FINDINGS: The chest demonstrates clear lungs without pneumonia, pleural effusion, or pneumothorax. Th e heart size is normal. Surgical clips in the right upper quadrant are likely from cholecystectomy. IMPRESSION: 1. No acute cardiopulmonary disease. Reviewed, dictated and finalized at location A.
[2021-05-07 18:59] VITALS: BP 122/63; PULSE 97; RESP 18; TEMP 36.2; O2SAT 100
--- NOTE | 2021-05-07 19:02 | ECG_ITS ---
Measurements Intervals [place] Rate: 95 P: 45 CO: 161 QRS: 27 QRSD: 89 T: 39 QT: 369 QTc: 464 Interpretive Statements SINUS RHYTHM NORMAL ECG Electronically Signed On 05-07-2021 20:13:53 CDT by Kenneth Allison D.O.
[2021-05-07 19:26] LABS: Basophils Absolute Auto 0.1 K/mm3 (0.0-0.1); Basophils Percent Auto 0.8 % (0.2-1.2); Eosinophils Absolute Auto 0.5 K/mm3 (0-0.3); Hematocrit 41.1 % (37.0-47.0); Hemoglobin 13.9 g/dL (12.0-15.0); Immature Granulocyte Absolute 0.05 K/mm3 (0.00-0.031); Immature Granulocyte Percent A 0.3 % (0-0.5); Lymphocytes Absolute Auto 4.46 K/mm3 (0.9-3.2); Mean Corpuscular HGB Conc 33.8 g/dl (32-36); Mean Corpuscular Hemoglobin 30.3 pg (26-34); Mean Corpuscular Volume 89.7 fl (80-100); Mean Platelet Volume 9.9 fl (7.4-10.4); Monocytes Absolute Auto 0.7 K/mm3 (0.1-0.6); Monocytes Percent Auto 4.7 % (2.6-8.5); Neutrophils Absolute Auto 9.1 K/mm3 (1.3-6.7); Neutrophils Percent Auto 61.2 % (45.5-73.1); Platelet Count Result 284 k/mm3 (150-375); Red Blood Count 4.58 M/mm3 (4.2-5.4); Red Cell Distribution Width 13.2 % (11.5-14.5); White Blood Count 14.9 K/mm3 (4.5-10.0)
[2021-05-07 19:36] LABS: Alanine Aminotransferase 54 U/L (4-35); Albumin Level 4.9 g/dL (3.5-5.1); Alkaline Phosphatase 135 U/L (38-126); Anion Gap 15 mmol/L (8-16); Aspartate Amino Transferase 49 U/L (14-36); Bilirubin,Total 0.3 mg/dL (0.2-1.3); Blood Urea Nitrogen 18 mg/dL (7-17); Calcium 9.6 mg/dL (8.4-10.2); Carbon Dioxide 21 mmol/L (22-30); Chloride 108 mmol/L (98-107); Estimated CRCL calculation 46 ml/min; Estimated Glomerular Filt Rate 44; Glucose 106 mg/dL (65-110); Potassium 3.5 mmol/L (3.4-5.0); Sodium 144 mmol/L (137-145)
[2021-05-07 20:41] VITALS: BP 109/75; PULSE 96; RESP 16; O2SAT 98
[2021-05-07] MEDS: SODIUM CHLORIDE 0.9% IV 1,000 ML 999 ML IV CONT (21:10)
--- NOTE | 2021-05-07 22:56 | ED.GENADULT ---
HPI - General Adult General Chief complaint: Weakness Stated complaint: WEAKNESS Time Seen by Provider: 05/07/21 20:37 History of Present Illness HPI narrative: Patient is a 45-year-old female who presents ER with multiple complaints. She reports over the last 2 to 3 days she has felt weak and tired. She has had intermittent headache. She has had some nausea and upset stomach. No stomach pain. No diarrhea. She said no fevers or chills or sweats. She saw her PCP who told her her creatinine was slightly elevated from normal and that she had a mildly elevated white blood cell count. She is vaccinated against Covid. No loss of taste or smell. No known sick contacts. Patient recently admitted to the hospital after overdosing on oxycodone. She did undergo a treatment program is feeling much better. Related Data Home Medications Medication Instructions Recorded Confirmed fejliycwqd-qwzoofgkizayc-[id number] 1 tablet PO Q4H PRN 07/24/19 04/25/21 topiramate 100 mg PO BID 07/24/19 04/25/21 Ubrelvy 100 mg PO DAILY PRN 09/10/20 04/25/21 levothyroxine 175 mcg PO DAILY 09/10/20 04/25/21 atorvastatin 40 mg PO DAILY 04/25/21 04/25/21 estradiol 1 mg PO DAILY 04/25/21 04/25/21 nortriptyline 75 mg PO DAILY 04/25/21 04/25/21 Allergies Allergy/AdvReac Type Severity Reaction Status Date / Time morphine Allergy Severe Hives Verified 05/07/21 18:58 Review of Systems Review of Systems: All systems reviewed & are unremarkable except as noted in HPI and below Constitutional: Constitutional: Denies chills, Reports fatigue, Denies fever(s) and Reports weakness Eyes: Eyes: Denies change in vision and Denies photophobia ENT: Denies nasal congestion and Denies sore throat Cardiovascular: Cardiovascular: Denies chest pain, Denies rapid heart rate and Denies radiating jaw, neck or arm pain Respiratory: Respiratory: Denies cough, Denies dyspnea and Denies wheezing Gastrointestinal: Gastrointestinal: Reports abdominal pain, Denies diarrhea, Reports nausea and Denies vomiting Genitourinary: Genitourinary: Denies nocturia, Denies dysuria and Denies flank pain [facility] Past Medical History Medical History (Updated 05/08/21 @ 00:16 by Derik Connors MD) Back pain Bipolar 1 disorder Depression History of suicide attempt OD on [place] in October 2020 Hypothyroidism Insomnia Type 2 diabetes mellitus Surgical History Surgical History H/O spinal fusion Family History Family History Father Acute myocardial infarction Colon cancer Congestive heart failure Diabetes mellitus Hypertension Mother Acute myocardial infarction Diabetes mellitus Hypertension Sibling Asthma Other Bipolar disorder Heart disease Schizophrenia Social History Social History Social History: Going through a divorce, she has 2 boys who do not live with her. Smoking status: Never smoker Smoking end date: 09/16/99 Alcohol intake: former Substance use: current Substance use type: marijuana Last use: 09/09/20 Additional occupation/education comments: Disability for her back problems since 2012 Gender identity (if verbalized by the patient): Female Spiritual care concerns: No Exam Narrative: GENERAL: Well-appearing, well-nourished, and in no acute distress. HEAD: Normocephalic, atraumatic. EYES: PERRL and EOMI. ENT: Mucous membranes moist. CHEST: Clear to auscultation. No respiratory distress. HEART: Regular rate and rhythm. Normal peripheral pulses. ABDOMEN: Soft, nontender, nondistended, normal active bowel sounds. EXTREMITIES: Normal range of motion. No edema. SKIN: Warm, dry, no rash. NEURO: Alert and oriented x3. PSYCH: Normal mood and affect. Course Course Emergency Course: Still with fatigue. PATEL improved. Hydrated. No abdominal tend
[2021-05-07 23:11] VITALS: BP 106/57; PULSE 76; RESP 20; O2SAT 100
[2021-05-07 23:17] LABS: Add Urine Microscopic? YES; Appearance Urine Clear (Clear); Bacteria Urine Trace /hpf; Bilirubin Urine Negative (Negative); Blood Urine Negative (Negative); Color Urine Yellow (Yellow); Glucose Urine UA Negative (Negative); Ketones Urine Negative (Negative); Leukocyte Esterase Ur Negative LEU/UL (Negative); Mucus Urine Rare /lpf; Nitrate Urine Negative (Negative); Protein Urine 1+ mg/dL (Negative); RBC Urine 0-2 /hpf (0-2); Specific Grav Ur 1.024 (1.001-1.035); Squamous Epithelial Cell Urine Rare /hpf (Few); Urobilinogen Urine Negative mg/dL (<2.0); WBC Urine 0-3 /hpf
[2021-05-08 00:41] VITALS: BP 124/63; PULSE 77; RESP 18; O2SAT 100
== END 2021-05-08 00:42 | disposition home or self-care (01) ==
PROVIDERS: Emergency Medicine; Emergency Provider Emergency Medicine; PCP Family Medicine Adolescent Medicine
DX: E86.0 Dehydration (principal); R53.83 Other fatigue; E03.9 Hypothyroidism, unspecified; E11.9 Type 2 diabetes mellitus without complications
CPT/HCPCS: 36415; 71046; 80053; 81001; 85025; 93005; 96365; 99284; J0131; J7030

== ENCOUNTER → 2021-05-15 13:32 | Outpatient (CLI) | payer MEDICARE, MEDICAID, SELFPAY ==
--- NOTE | ~2021-05-15 | CT_ITS ---
EXAMINATION: CT abdomen pelvis wo con DATE: 05/15/2021 13:47 INDICATION: Generalized abdominal tenderness. Weight loss. Abnormal liver function tests. TECHNIQUE: Computed tomography (CT) of the abdomen and pelvis was performed without intravenous contr ast. Automated exposure control and iterative reconstruction technique were employed. The dose-length product was 951.47 mGy-cm. COMPARISON: CT abdomen and pelvis 01/29/2017 FINDINGS: The visualized portions of the lung bases demonstrate mild atelectasis. No pleural effusion . The heart size is normal. No pericardial effusion. The liver and spine are normal. There are change s of cholecystectomy. The pancreas, adrenal glands, and kidneys are normal. There are no dilated loop s of bowel. There is a large volume of stool in the colon. There are changes of appendectomy. There a re no pathologically enlarged lymph nodes. There is no free intraperitoneal fluid. In the left inguin al region, there is a 2.6 cm subcutaneous cyst, likely a sebaceous cyst. There are changes of anterio r and posterior fusion procedures at L5-S1 with pedicle screws and interbody bone graft. There is mod erate thoracic spondylosis and mild lumbar spondylosis. IMPRESSION: 1. No etiology for the patient's symptoms. Reviewed, dictated and finalized at location A.
== END ==
PROVIDERS: PCP Family Medicine Adolescent Medicine; Visit Provider Physician Assistant
DX: R63.4 Abnormal weight loss (principal); R19.00 Intra-abdominal and pelvic swelling, mass and lump, unspecified site
CPT/HCPCS: 74176

== ENCOUNTER 2021-08-16 12:47 | Outpatient (CLI) | payer OTHER, SELFPAY ==
--- NOTE | ~2021-08-16 | US_ITS ---
US renal BI 08/16/2021 13:19 Procedure: Realtime transabdominal ultrasound of the kidneys and bladder. Indication: Renal insufficiency Comparison: No prior studies for comparison. Findings: Renal echotexture is normal bilaterally without hydronephrosis, contour deforming mass or r enal calculus. The right kidney measures 11.5 cm and left kidney measures 9.1 cm. Bladder within nor mal limits. Impression: 1: Unremarkable renal ultrasound. No stones, masses or hydronephrosis. Reviewed, dictated and finalized at location B. TING OPERATOR Impression: 1: Unremarkable renal ultrasound. No stones, masses or hydronephrosis.
== END 2021-08-16 12:48 | disposition home or self-care (01) ==
LOC: ANHIMG 12:50
PROVIDERS: PCP Family Medicine Adolescent Medicine; Visit Provider Internal Medicine Nephrology
DX: N28.9 Disorder of kidney and ureter, unspecified (principal)
CPT/HCPCS: 76775

== ENCOUNTER 2021-11-12 14:13 | Emergency (ER) | payer OTHER, SELFPAY ==
--- NOTE | 2021-11-12 14:16 | ED.FEMALEGU ---
HPI - Female Genitourinary General Chief complaint: Urogenital-Female Stated complaint: bladder infection Time Seen by Provider: 11/12/21 14:25 Source: patient, RN notes reviewed and old records reviewed Mode of arrival: ambulatory Limitations: no limitations History of Present Illness HPI Narrative: -year-old female presents to the [facility] with complaints of lower, suprapubic cramping, lower back pain and burning with urination. States it started yesterday. States that she felt febrile, did not take her temperature. MD elicited complaint: UTI Related Data Home Medications Medication Instructions Recorded Confirmed topiramate 100 mg PO BID 07/24/19 11/12/21 levothyroxine 175 mcg PO DAILY 09/10/20 11/12/21 estradiol 1 mg PO DAILY 04/25/21 11/12/21 nortriptyline 75 mg PO DAILY 04/25/21 11/12/21 Allergies Allergy/AdvReac Type Severity Reaction Status Date / Time morphine Allergy Severe Hives Verified 11/12/21 14:33 Review of Systems Review of Systems: All systems reviewed & are unremarkable except as noted in HPI and below Constitutional: Constitutional: Reports no additional constitutional complaints, Denies chills and Denies fatigue Eyes: Eyes: Reports no additional eye complaints ENT: Reports system reviewed and no additional complaints, except as documented Cardiovascular: Cardiovascular: Reports no additional cardiovascular complaints and Denies chest pain Respiratory: Respiratory: Reports no additional respiratory complaints, Denies cough and Denies dyspnea Gastrointestinal: Gastrointestinal: Reports as per HPI, Reports abdominal pain (suprapubic pressure), Denies diarrhea, Denies nausea and Denies vomiting Genitourinary: Genitourinary: Reports as per HPI, Reports hematuria, Denies nocturia, Reports dysuria, Denies flank pain and Denies vaginal discharge Musculoskeletal: Musculoskeletal: Reports no additional musculoskeletal complaints and Denies back pain Integumentary/Breasts: Skin/Breast: Reports system reviewed and no additional complaints, except as docu Neurologic: Reports system reviewed and no additional complaints, except as documented Psychiatric: Psychiatric: Reports no additional psychiatric complaints Allergic/Immunologic: Allergic/Immunologic: Reports no additional allergic/immunologic complaints PMFSH Past Medical History Medical History Back pain Bipolar 1 disorder Depression History of suicide attempt OD on [place] in October 2020 Hypothyroidism Insomnia Type 2 diabetes mellitus Surgical History Surgical History H/O spinal fusion Family History Family History Father Acute myocardial infarction Colon cancer Congestive heart failure Diabetes mellitus Hypertension Mother Acute myocardial infarction Diabetes mellitus Hypertension Sibling Asthma Other Bipolar disorder Heart disease Schizophrenia Social History Social History Social History: Going through a divorce, she has 2 boys who do not live with her. Smoking status: Never smoker Smoking end date: 09/16/99 Alcohol intake: former Substance use: current Substance use type: marijuana Last use: 09/09/20 Additional occupation/education comments: Disability for her back problems since 2012 Gender identity (if verbalized by the patient): Female Sexual Orientation (if Verbalized by the Patient): Straight or Heterosexual Spiritual care concerns: No Comments At the time of my signature, I reviewed and agree with the nursing past medical, surgical, social, and family history. There is no relevant family history pertinent to the patient complaint. Exam Const: General: healthy appearing, no acute distress and alert Nutritional Appearance: well nourished and obese
[2021-11-12 14:21] VITALS: BP 115/71; PULSE 91; RESP 16; TEMP 36.6; O2SAT 97
== END 2021-11-12 14:40 | disposition home or self-care (01) ==
PROVIDERS: Emergency Provider Nurse Practitioner; PCP Family Medicine Adolescent Medicine
DX: N39.0 Urinary tract infection, site not specified (principal); E03.9 Hypothyroidism, unspecified; E11.9 Type 2 diabetes mellitus without complications; F32.A Depression, unspecified
CPT/HCPCS: 81003; 87086; 87088; 99213; G0463

== ENCOUNTER 2022-03-02 12:26 | Emergency (ER) | payer OTHER, SELFPAY ==
--- NOTE | 2022-03-02 12:27 | ED.FEMALEGU ---
HPI - Female Genitourinary General Chief complaint: Urogenital-Female Stated complaint: UTI Time Seen by Provider: 03/02/22 12:27 Source: patient Mode of arrival: ambulatory Limitations: no limitations History of Present Illness HPI Narrative: Ms. Duval is a 46-year-old female patient presenting to the clinic today with complaints of possible UTI x2 to 3 days. She reports that she has been having some burning and some right-sided flank pain. She denies any fever or chills. She denies any lower abdominal pain. She denies any new sexual partners and is not currently sexually active. She denies any vaginal discharge or pelvic pain. History of chronic back pain. Related Data Home Medications Medication Instructions Recorded Confirmed topiramate 25 mg sprinkle capsule 100 mg PO BID 07/24/19 03/02/22 levothyroxine 175 mcg tablet 175 mcg PO DAILY 09/10/20 03/02/22 estradiol 1 mg tablet 1 mg PO DAILY 04/25/21 03/02/22 nortriptyline 25 mg capsule 75 mg PO DAILY 04/25/21 03/02/22 Allergies Allergy/AdvReac Type Severity Reaction Status Date / Time morphine Allergy Severe Hives Verified 03/02/22 12:36 Review of Systems Review of Systems: Pertinent positives per HPI. Patient denies any fever, chills, rash, headache, visual changes, dizziness, cough, runny nose, sore throat, shortness of breath, chest pain, palpitations, nausea, vomiting, diarrhea, constipation, abdominal pain. PMFSH Past Medical History Medical History Back pain Bipolar 1 disorder Depression History of suicide attempt OD on [place] in October 2020 Hypothyroidism Insomnia Type 2 diabetes mellitus Surgical History Surgical History H/O spinal fusion Family History Family History Father Acute myocardial infarction Colon cancer Congestive heart failure Diabetes mellitus Hypertension Mother Acute myocardial infarction Diabetes mellitus Hypertension Sibling Asthma Other Bipolar disorder Heart disease Schizophrenia Social History Social History Social History: Going through a divorce, she has 2 boys who do not live with her. Smoking status: Never smoker Smoking end date: 09/16/99 Alcohol intake: former Substance use: current Substance use type: marijuana Last use: 09/09/20 Additional occupation/education comments: Disability for her back problems since 2012 Gender identity (if verbalized by the patient): Female Sexual Orientation (if Verbalized by the Patient): Straight or Heterosexual Spiritual care concerns: No Comments At the time of my signature, I reviewed and agree with the nursing past medical, surgical, social, and family history. There is no relevant family history pertinent to the patient complaint. Exam Narrative: General: Well-developed, well nourished, in no apparent distress. Head: Normocephalic, atraumatic. Cardio: Regular rate and rhythm, s1 and s2 normal, no murmur appreciated. Resp: Clear to auscultation bilaterally, no rhonchi, rales, wheezing or rubs. Abdomen: Soft, pliable, bowel sounds present in all quadrants, non-tender to palpation, no organomegly, mild right CVAT tenderness. Course Course Emergency Course: Portions of this record may have been created with voice recognition software. Level of Care: Express Care Visit Vital Signs Vital signs: Vital signs reviewed MDM - Female Genitourinary MDM Narrative Medical decision making narrative: At the time of visit patient is resting comfortably on the exam table. She has dysuria and a little bit of back pain in the right flank. UA positive for 1+ leukocyte and trace of blood. I will treat with a prescription for some Bactrim to cover acute urinary tract infection. Supportive paula
[2022-03-02 12:40] VITALS: BP 135/83; PULSE 76; RESP 16; TEMP 36.9; O2SAT 98
== END 2022-03-02 12:50 | disposition home or self-care (01) ==
PROVIDERS: Emergency Provider Nurse Practitioner Family; PCP Family Medicine Adolescent Medicine
DX: N30.00 Acute cystitis without hematuria (principal); E03.9 Hypothyroidism, unspecified; E11.9 Type 2 diabetes mellitus without complications; F32.A Depression, unspecified; Z87.891 Personal history of nicotine dependence
CPT/HCPCS: 81003; 87077; 87086; 87186; 99213; G0463

== ENCOUNTER 2022-05-24 12:58 | Emergency (ER) | payer OTHER, SELFPAY ==
--- NOTE | 2022-05-24 13:00 | ED.LOWEXIN ---
HPI - Extremity Injury (Lower) General Stated Complaint: Rigth Foot Pain Time Seen by Provider: 05/24/22 12:59 Source: patient Mode of arrival: ambulatory Limitations: no limitations History of Present Illness HPI Narrative: Ms. Duval is a 46-year-old female patient presenting to the clinic today with complaints of right foot pain that occurred on Saturday when she fell down 2 steps. She reports she was seen at [place] emergency room for this and had pain x-ray of her foot and ankle and it showed that she had a fracture in her foot but states that they should do a repeat x-ray in 2 weeks to make sure it is broken. States all they did was Pramod wrap and that is not controlling her pain. She is requesting a splint. States she does not have an appointment with the waiter/waitress tourist class until the of this month. Related Data Home Medications Medication Instructions Recorded Confirmed topiramate 25 mg sprinkle capsule 100 mg PO BID 07/24/19 03/02/22 levothyroxine 175 mcg tablet 175 mcg PO DAILY 09/10/20 03/02/22 estradiol 1 mg tablet 1 mg PO DAILY 04/25/21 03/02/22 nortriptyline 25 mg capsule 75 mg PO DAILY 04/25/21 03/02/22 Allergies Allergy/AdvReac Type Severity Reaction Status Date / Time morphine Allergy Severe Hives Verified 05/24/22 13:06 Review of Systems Review of Systems: Pertinent positives per HPI. Patient denies any fever, chills, rash, headache, visual changes, dizziness, cough, runny nose, sore throat, shortness of breath, chest pain, palpitations, nausea, vomiting, diarrhea, constipation, abdominal pain, or any urinary issues. PMFSH Past Medical History Medical History Back pain Bipolar 1 disorder Depression History of suicide attempt OD on [place] in October 2020 Hypothyroidism Insomnia Type 2 diabetes mellitus Surgical History Surgical History H/O spinal fusion Family History Family History Father Acute myocardial infarction Colon cancer Congestive heart failure Diabetes mellitus Hypertension Mother Acute myocardial infarction Diabetes mellitus Hypertension Sibling Asthma Other Bipolar disorder Heart disease Schizophrenia Social History Social History Social History: Going through a divorce, she has 2 boys who do not live with her. Smoking status: Never smoker Smoking end date: 09/16/99 Alcohol intake: former Substance use: current Substance use type: marijuana Last use: 09/09/20 Additional occupation/education comments: Disability for her back problems since 2012 Gender identity (if verbalized by the patient): Female Sexual Orientation (if Verbalized by the Patient): Straight or Heterosexual Spiritual care concerns: No Comments At the time of my signature, I reviewed and agree with the nursing past medical, surgical, social, and family history. There is no relevant family history pertinent to the patient complaint. Exam Narrative: General: Well-developed, well nourished, in no apparent distress Head: Normocephalic, atraumatic. Cardio: Regular rate and rhythm, s1 and s2 normal, no murmur appreciated. Resp: Clear to auscultation bilaterally, no rhonchi, rales, wheezing or rubs. Musculoskeletal: No deformity, bruising noted to the dorsal mid foot, tender to palpation across the dorsal mid foot grossly, painful to plantar flex or dorsal flex right foot and is weak against resistance, pain with bearing weight, peripheral pulse strong, trace edema in the right foot, no cyanosis, walking with crutches Course Course Emergency Course: Portions of this record may have been created with voice recognition software. Level of Care: Express Care Visit Vital Signs Vital signs: Vital signs reviewed MDM - Extremity Inju
[2022-05-24 13:08] VITALS: BP 150/98; PULSE 92; RESP 16; TEMP 36.9; O2SAT 99
== END 2022-05-24 14:27 | disposition home or self-care (01) ==
PROVIDERS: Emergency Provider Nurse Practitioner Family; PCP Family Medicine Adolescent Medicine
DX: M79.671 Pain in right foot (principal); Z87.891 Personal history of nicotine dependence; E03.9 Hypothyroidism, unspecified; E11.9 Type 2 diabetes mellitus without complications; F32.A Depression, unspecified
CPT/HCPCS: 99212; G0463

== ENCOUNTER 2023-01-14 14:21 | Emergency (ER) | payer OTHER, SELFPAY ==
[2023-01-14 14:46] VITALS: BP 152/93; PULSE 78; RESP 14; TEMP 36.3; O2SAT 99
--- NOTE | 2023-01-14 17:03 | PC.NURSE ---
Called pt by name for blood draw, no response
--- NOTE | 2023-01-14 17:03 | PC.NURSE ---
called for blood draw, not in waiting room
--- NOTE | 2023-01-14 18:11 | PC.NURSE ---
pt not in waiting room again when called for labs
== END 2023-01-14 17:03 | disposition left against medical advice (07) ==
PROVIDERS: PCP Family Medicine Adolescent Medicine
DX: R10.9 Unspecified abdominal pain (principal)
CPT/HCPCS: 99199

== ENCOUNTER 2023-11-04 16:44 | Emergency (ER) | payer OTHER, SELFPAY ==
--- NOTE | ~2023-11-04 | XR_ITS ---
EXAMINATION: XR hand RT min 3V DATE: 11/04/2023 17:18 INDICATION: Trauma to the right hand with pain at the second-fourth digits TECHNIQUE: Posteroanterior, oblique and lateral views of the right hand were obtained. COMPARISON: None. FINDINGS: Alignment is normal. No fracture. Joint spaces are normal. Soft tissues are unremarkable. IMPRESSION: 1. Negative right hand radiographs. Reviewed, dictated and finalized at location [facility]. [facility]
--- NOTE | 2023-11-04 16:50 | ED.UPPEXIN ---
HPI - Extremity Injury (Upper) General Chief Complaint: Extremity Injury, Upper Stated Complaint: injury- fingers right hand Time Seen by Provider: 11/04/23 17:21 Source: patient and RN notes reviewed Mode of arrival: ambulatory Limitations: no limitations History of Present Illness HPI narrative: 48-year-old female presents concern for right hand pain. Reports last night she smashed the hand in a car door. She reports pain digits 2, 3, 4, 5. She reports increased pain and swelling today. MD complaint: injury to: right and hand Related Data Home Medications Medication Instructions Recorded Confirmed estradiol 1 mg tablet 1 mg PO DAILY 04/25/21 11/04/23 nortriptyline 25 mg capsule 75 mg PO DAILY 04/25/21 05/24/22 atorvastatin 40 mg tablet 40 mg PO DAILY 11/04/23 11/04/23 dasatinib 100 mg tablet (Sprycel) 100 mg PO DAILY 11/04/23 11/04/23 levothyroxine 200 mcg tablet 200 mcg PO DAILY 11/04/23 11/04/23 ondansetron 8 mg disintegrating 8 mg PO PRN PRN Nausea And Vomiting 11/04/23 11/04/23 tablet Allergies Allergy/AdvReac Type Severity Reaction Status Date / Time morphine Allergy Severe Hives Verified 11/04/23 16:49 Review of Systems Review of Systems: CONSTITUTIONAL: Denies malaise, chills, sweats, or fever. SKIN: Denies rash or itching, open skin, laceration, abrasion, redness, warmth, swelling. MUSCULOSKELETAL: Reports right hand pain and swelling NEUROLOGIC: Denies numbness, weakness All systems reviewed & are unremarkable except as noted in HPI and below PMFSH Past Medical History Medical History Back pain Bipolar 1 disorder Depression History of suicide attempt OD on [place] in October 2020 Hypothyroidism Insomnia Type 2 diabetes mellitus Surgical History Surgical History H/O spinal fusion Family History Family History Father Acute myocardial infarction Colon cancer Congestive heart failure Diabetes mellitus Hypertension Mother Acute myocardial infarction Diabetes mellitus Hypertension Sibling Asthma Other Bipolar disorder Heart disease Schizophrenia Social History Social History Social History: Going through a divorce, she has 2 boys who do not live with her. Smoking status: Never smoker Smoking end date: 09/16/99 Alcohol intake: former Substance use: current Substance use type: marijuana Last use: 09/09/20 Living arrangements: with friend(s) Occupation/Education: other Additional occupation/education comments: Disability for her back problems since 2012 Gender identity (if verbalized by the patient): Female Sexual Orientation (if Verbalized by the Patient): Straight or Heterosexual Spiritual care concerns: No Comments At time of signature, agree with nursing past medical, surgical, social and family history. There is no relevant family history pertinent to the presenting complaint Exam Narrative: GENERAL: Well-appearing, well-nourished, and in no acute distress. HEAD: Normocephalic, atraumatic. EYES: PERRLA, conjunctivae clear NECK: Supple. CHEST: Speaks in full sentences. No respiratory distress. HEART: Regular rate and rhythm. Normal and equal peripheral pulses. EXTREMITIES: Right hand, digits have grossly normal strength and sensation, limited range of motion with flexion. Mild edema and ecchymosis in digits 2 through 5. Normal sensation with sensitivity to light touch and pain. General digit tenderness digits 2 through 5. No open wounds, no skin tenting, no devitalized tissue or atrophy, no trophic changes, no obvious deformity, alignment normal, nearby joints and structures intact. Distal pulses palpable and equal bilaterally, skin warm, dry, pink. Capillary refill less than 3 seconds. SKIN:
[2023-11-04 17:09] VITALS: BP 119/71; PULSE 117; RESP 18; TEMP 37.4; O2SAT 97
== END 2023-11-04 17:39 | disposition home or self-care (01) ==
PROVIDERS: Emergency Provider Nurse Practitioner
DX: S60.021A Contusion of right index finger without damage to nail, initial encounter (principal); S60.031A Contusion of right middle finger without damage to nail, initial encounter; S60.041A Contusion of right ring finger without damage to nail, initial encounter; S60.051A Contusion of right little finger without damage to nail, initial encounter; X58.XXXA Exposure to other specified factors, initial encounter; E03.9 Hypothyroidism, unspecified; E11.9 Type 2 diabetes mellitus without complications; F32.A Depression, unspecified
CPT/HCPCS: 73130; 99213; G0463

== ENCOUNTER 2024-08-30 15:58 | Emergency (ER) | payer OTHER, SELFPAY ==
--- NOTE | 2024-08-30 16:09 | ED_ITS ---
HPI - URI/Sore Throat General Chief Complaint: Upper Respiratory Infection Stated Complaint: throat,bodyaches,feels like marbles when breathi Time Seen by Provider: 08/30/24 16:10 Source: patient Mode of arrival: ambulatory Limitations: no limitations History of Present Illness HPI Narrative: Cami is a 48-year-old female patient presenting to the clinic today with complaints sore throat, body aches, feels like marbles when she is breathing. States that this is been going on for a month and a half. Has a productive cough with some yellow green phlegm. Denies any chest pain. History of chronic myeloid leukemia MD elicited complaint: sore throat and nasal congestion Related Data Home Medications ?Medication ?Instructions ?Recorded ?Confirmed ?Last Taken ?Type estradiol 1 mg tablet 1 mg PO DAILY 04/25/21 08/30/24 Unknown History nortriptyline 25 mg capsule 75 mg PO DAILY 04/25/21 08/30/24 Unknown History atorvastatin 40 mg tablet 40 mg PO DAILY 11/04/23 08/30/24 Unknown History levothyroxine 200 mcg tablet 200 mcg PO DAILY 11/04/23 08/30/24 Unknown History pantoprazole 40 mg tablet,delayed 40 mg PO DAILY 08/30/24 08/30/24 Unknown History release Allergies Allergy/AdvReac Type Severity Reaction Status Date / Time morphine Allergy Severe Hives Verified 08/30/24 16:08 Review of Systems Review of Systems: Pertinent positives per HPI. Patient denies any fever, chills, rash, headache, visual changes, dizziness, cough, shortness of breath, chest pain, palpitations, nausea, vomiting, diarrhea, constipation, abdominal pain, or any urinary issues. [facility] Past Medical History Medical History History of suicide attempt OD on [place] in October 2020 Back pain Depression Insomnia Hypothyroidism Type 2 diabetes mellitus Bipolar 1 disorder Surgical History Surgical History H/O spinal fusion Family History Family History Father Acute myocardial infarction Colon cancer Congestive heart failure Diabetes mellitus Hypertension Mother Acute myocardial infarction Diabetes mellitus Hypertension Sibling Asthma Other Bipolar disorder Heart disease Schizophrenia Social History Social History Social History: Going through a divorce, she has 2 boys who do not live with her. Smoking status: Never smoker Smoking end date: 09/16/99 Alcohol intake: former Substance use: current Substance use type: marijuana Last use: 09/09/20 Living arrangements: with friend(s) Occupation/Education: other Additional occupation/education comments: Disability for her back problems since 2012 Gender identity (if verbalized by the patient): Female Sexual Orientation (if Verbalized by the Patient): Straight or Heterosexual Spiritual care concerns: No Comments At the time of my signature, I reviewed and agree with the nursing past medical, surgical, social, and family history. There is no relevant family history pertinent to the patient complaint. Exam Narrative: General: Well-developed, morbidly obese in no apparent distress Head: Normocephalic, atraumatic Eyes: Pupils equally round and reactive to light bilaterally, EOM intact, sclera and conjunctive clear, no discharge, lids normal Ears: TMs intact and congested, ear canals clear, no drainage, grossly hearing normal. Nose: Nares patent, yellow nasal discharge, no inflammation, no sinus tenderness. Mouth: Oral pharynx without lesions or masses, good dentition, MMM. Neck: Supple, trachea midline, no enlargement of anterior or posterior cervical nodes, no thyroid masses or goiter palpable. Cardio: Regular rate and rhythm, s1 and s2 normal, no murmur appreciated. Resp: Expiratory wheezing, no rhonchi, rales, or rubs Course Course Emergency Course: Portions of this record may have been created with voice recognition software. Level of Care: Express Care Visit Vital Signs Vital signs: Vital Signs Temperature 36.6 C 08/30/24 16:11 Pulse Rate 77 08/30/24 16:11 Respiratory Rate 16 08/30/24 16:11 Blood Pressure 143/79 H 08/30/24 16:11 Pulse Oximetry 99 08/30/24 16:11 Oxygen Delivery Room Air 08/30/24 16:11 Temperature 36.6 C 08/30/24 16:11 Pulse Rate 77 08/30/24 16:11 Respiratory Rate 16 08/30/24 16:11 Blood Pressure 143/79 H 08/30/24 16:11 Pulse Oximetry 99 08/30/24 16:11 Oxygen Delivery Room Air 08/30/24 16:11 Vital signs reviewed MDM - URI/Sore Throat MDM Narrative Medical decision making narrative: At the time of visit patient is resting comfortably on the exam table. Patient appears to be nontoxic. Plan: I suspect patient has acute sinusitis/bronchitis. Prescription for doxycycline, prednisone, and albuterol inhaler was sent to the pharmacy. Supp ortive measures were discussed with the patient and they voiced understanding discharge instructions and agrees to treatment plan. Return precautions reviewed Differential Diagnosis Differential diagnosis: Likely upper respiratory infection, otitis media, sinusitis, viral infection, bronchitis, influenza, pharyngitis and other (COVID) Discharge Plan Discharge Clinical Impression: Sinobronchitis Patient Disposition: Home, Self-Care Condition: Stable Instructions: Antibiotic Form, Sinusitis (ED), Acute Bronchitis (ED) Additional Instructions: Take prescription medications only as prescribed-doxycycline, prednisone, and albuterol inhaler Increase fluids and stay well hydrated Tylenol/motrin for pain/fever Flonase and OTC antihistamines as directed Vicks vapor rub to open sinuses Sinus rinses for congestion Cepacol spray, cough drops, throat lozenges, warm tea with honey/lemon, gargle salt water to soothe throat BRAT diet for diarrhea Clear liquids x 24 hours then advance as tolerated for nausea/vomiting Go to the ED if you develop a worsening in your condition- high fever not controlled by Tylenol or Motrin, dehydration, weakness, lethargy, shortness of breath, or chest pain. Follow up with your PCP in 3-5 days if symptoms persist. Patient Language: [place] Prescriptions: New prednisone 20 mg tablet 40 mg PO DAILY 5 Days Qty: 10 0RF doxycycline monohydrate 100 mg capsule 100 mg PO BID 10 Days Qty: 20 0RF albuterol sulfate 90 mcg/actuation HFA aerosol inhaler 2 puff inhalation Q4-6H PRN (Reason: shortness of breath or wheezing) 30 Days Qty: 8.5 0RF fluconazole 150 mg tablet 150 mg PO ONCE Qty: 2 0RF Rx Instructions: as a single dose. May repeat in 72 hours if needed. No Action atorvastatin 40 mg tablet 40 mg PO DAILY levothyroxine 200 mcg tablet 200 mcg PO DAILY pantoprazole 40 mg tablet,delayed release (DR/EC) 40 mg PO DAILY nortriptyline 25 mg capsule 75 mg PO DAILY estradiol 1 mg tablet 1 mg PO DAILY Follow-up/Referrals: PHYSICIAN NOT ON STAFF,NONSTAFF [Primary Care Provider] - Stand Alone Forms: Work/School Release IP Time of Disposition: 16:17 Quality NIHSS Nursing Documentation ED NIHSS nursing documentation: reviewed/agree
[2024-08-30 16:11] VITALS: BP 143/79; PULSE 77; RESP 16; TEMP 36.6; O2SAT 99
== END 2024-08-30 16:23 | disposition home or self-care (01) ==
PROVIDERS: Emergency Provider Nurse Practitioner Family
DX: J32.9 Chronic sinusitis, unspecified (principal); J40 Bronchitis, not specified as acute or chronic; E03.9 Hypothyroidism, unspecified; E11.9 Type 2 diabetes mellitus without complications; F32.A Depression, unspecified; Z85.6 Personal history of leukemia; Z87.891 Personal history of nicotine dependence
CPT/HCPCS: 99213; G0463

== ENCOUNTER 2024-11-02 13:25 | Emergency (ER) | payer OTHER, SELFPAY ==
[2024-11-02 13:39] VITALS: BP 134/76; PULSE 90; RESP 16; TEMP 37.3; O2SAT 98
--- NOTE | 2024-11-02 13:39 | ED.FEMALEGU ---
HPI - Female Genitourinary General Chief complaint: Urogenital-Female Stated complaint: urinary issue Time Seen by Provider: 11/02/24 13:39 Source: patient, RN notes reviewed and old records reviewed Mode of arrival: ambulatory Limitations: no limitations History of Present Illness HPI Narrative: Patient presents with complaints of urinary frequency and burning. She reports symptoms have been present for 2 or 3 days. She does report low back pain, worse on the right side. She had a fever yesterday. She has not been taking anything for her symptoms. She denies any injury or trauma Related Data Home Medications ?Medication ?Instructions ?Recorded ?Confirmed ?Last Taken ?Type estradiol 1 mg tablet 1 mg PO DAILY 04/25/21 08/30/24 Unknown History nortriptyline 25 mg capsule 75 mg PO DAILY 04/25/21 08/30/24 Unknown History atorvastatin 40 mg tablet 40 mg PO DAILY 11/04/23 08/30/24 Unknown History levothyroxine 200 mcg tablet 200 mcg PO DAILY 11/04/23 08/30/24 Unknown History pantoprazole 40 mg tablet,delayed 40 mg PO DAILY 08/30/24 08/30/24 Unknown History release Allergies Allergy/AdvReac Type Severity Reaction Status Date / Time morphine Allergy Severe Hives Verified 11/02/24 13:43 Review of Systems Review of Systems: All systems reviewed & are unremarkable except as noted in HPI and below Constitutional: Constitutional: Reports no additional constitutional complaints ENT: Reports system reviewed and no additional complaints, except as documented Cardiovascular: Cardiovascular: Reports no additional cardiovascular complaints Respiratory: Respiratory: Reports no additional respiratory complaints Gastrointestinal: Gastrointestinal: Reports no additional gastrointestinal complaints Genitourinary: Genitourinary: Reports dysuria, Reports flank pain and Reports urinary urgency [facility] Past Medical History Medical History History of suicide attempt OD on [place] in October 2020 Back pain Depression Insomnia Hypothyroidism Type 2 diabetes mellitus Bipolar 1 disorder Surgical History Surgical History H/O spinal fusion Family History Family History Father Acute myocardial infarction Colon cancer Congestive heart failure Diabetes mellitus Hypertension Mother Acute myocardial infarction Diabetes mellitus Hypertension Sibling Asthma Other Bipolar disorder Heart disease Schizophrenia Social History Social History Social History: Going through a divorce, she has 2 boys who do not live with her. Smoking status: Never smoker Smoking end date: 09/16/99 Alcohol intake: former Substance use: current Substance use type: marijuana Last use: 09/09/20 Living arrangements: with friend(s) Occupation/Education: other Additional occupation/education comments: Disability for her back problems since 2012 Gender identity (if verbalized by the patient): Female Sexual Orientation (if Verbalized by the Patient): Straight or Heterosexual Spiritual care concerns: No Comments At the time of my signature, I reviewed and agree with the nursing past medical, surgical, social, and family history. There is no relevant family history pertinent to the patient complaint. Exam Const: General: cooperative, no acute distress, alert and awake Orientation/consciousness: oriented to person, oriented to place and oriented to time HENMT: Head: normal to inspection Resp: Effort & Inspection: normal respiratory effort and able to speak in complete sentences Auscultation: clear to auscultation bilaterally, no crackles, no rales, no rhonchi and no wheezes Cardio: Palpation: normal PMI Rate: regular rate Rhythm: regular rhythm Heart sounds: S1 normal heart sound present and S2 normal heart sound present : General: Yes CVA tenderness on the right Neuro: General: oriented to person, oriented to place and oriented to time Cranial nerves: Yes CN's II-XII intact bilaterally Psych: Appearance: grossly normal Thought process: Normal thought process present Insight: Good insight present (Psych) Judgement: Good judgement present (Psych) Course Course Level of Care: Express Care Visit Vital Signs Vital signs: Reviewed MDM - Female Genitourinary MDM Narrative Medical decision making narrative: Patient is nontoxic appearing, not in any distress. She does however have some CVA tenderness. Strict emergency department precautions discussed with patient at length. She verbalizes understanding. Discharge instructions reviewed with patient, as well as provided in writing per nursing staff. The instructions also include specific and strict return/GO TO THE ER as well as f/u information. All questions have been answered, and the patient deny any further questions with discharge and discharge plan. Some parts of this dictation were generated by voice recognition software and may contain typographical and/or grammatical inaccuracies. Differential Diagnosis Differential diagnosis: Likely urinary tract infection, cystitis and other (Pyelonephritis) Lab Data Attestation: I reviewed the patient's lab results. Discharge Plan Discharge Clinical Impression: Urinary tract infection Qualifiers: Urinary tract infection type: site unspecified Hematuria presence: with hematuria Qualified Code(s): N39.0 - Urinary tract infection, site not specified Patient Disposition: Home, Self-Care Condition: Stable Instructions: Antibiotic Form, Urinary Tract Infection in Women (ED) Patient Language: Mauritian Prescriptions: New nitrofurantoin monohyd/m-cryst [Macrobid] 100 mg capsule 100 mg PO Q12H 5 Days Qty: 10 0RF Rx Instructions: must administer with a meal/food fluconazole [Diflucan] 200 mg tablet 200 mg PO DAILY Qty: 2 0RF Rx Instructions: Take 1 tablet at onset of symptoms, may repeat dose in 48 hours if no relief No Action atorvastatin 40 mg tablet 40 mg PO DAILY levothyroxine 200 mcg tablet 200 mcg PO DAILY pantoprazole 40 mg tablet,delayed release (DR/EC) 40 mg PO DAILY nortriptyline 25 mg capsule 75 mg PO DAILY estradiol 1 mg tablet 1 mg PO DAILY Follow-up/Referrals: PHYSICIAN NOT ON STAFF,NONSTAFF [Primary Care Provider] - Stand Alone Forms: Work/School Release IP Time of Disposition: 13:56
[2024-11-02 13:46] LABS: EDUAAPPEAR Cloudy; EDUABILI 1+ (Negative); EDUABLOOD 2+ (Negative); EDUACOLOR1 Orange; EDUAGLUCOSE Negative (Negative); EDUAKETONE 3+ (Negative); EDUALEUKO 1+ (Negative); EDUANITRATE Positive (Negative); EDUAPH 5.5; EDUAPROTEIN 3+ (Negative); EDUASPGRAVITY 1.025
== END 2024-11-02 14:00 | disposition home or self-care (01) ==
PROVIDERS: Emergency Provider Nurse Practitioner Family
DX: N39.0 Urinary tract infection, site not specified (principal); B96.20 Unspecified Escherichia coli [E. coli] as the cause of diseases classified elsewhere; Z87.891 Personal history of nicotine dependence; E11.9 Type 2 diabetes mellitus without complications; E03.9 Hypothyroidism, unspecified
CPT/HCPCS: 81003; 87086; 87186; 99213; G0463

== ENCOUNTER 2025-02-12 09:13 | Emergency (ER) | payer OTHER, SELFPAY ==
[2025-02-12 09:40] VITALS: BP 134/82; PULSE 65; RESP 14; TEMP 36.3; O2SAT 100
--- NOTE | 2025-02-12 10:04 | ED.FEMALEGU ---
HPI - Female Genitourinary General Chief complaint: Urogenital-Female Stated complaint: urinary irritation Time Seen by Provider: 02/12/25 09:17 Source: patient Mode of arrival: ambulatory Limitations: no limitations History of Present Illness HPI Narrative: Cami is a 49-year-old female who presents with UTI symptoms these such as dysuria, urinary frequency, pressure and right flank pain for 2 days. She also reports nausea, vomiting, and abdominal bloating started yesterday. Denies any blood in her emesis or bile. Reports tactile fever, chills night sweats. Took Aleve at 6:00 a.m. this morning denies any blood or clots in her urine. She was last seen in October in the ER for UTI symptoms and treated with possible Cipro in hospital and discharged with Bactrim. She reported residual kidney pain on the right side that resolved after week of antibiotics. She has a history of chronic myeloid leukemia. Reports decrease in his system. Not on any medications for that at this time. Prior to hospital admission patient was seen here and was given Macrobid followed by cefdinir 2 days later from unknown provider. Patient has appointment with urologist scheduled. MD elicited complaint: dysuria Related Data Home Medications ?Medication ?Instructions ?Recorded ?Confirmed ?Last Taken ?Type estradiol 1 mg tablet 1 mg PO DAILY 04/25/21 02/12/25 Unknown History nortriptyline 25 mg capsule 75 mg PO DAILY 04/25/21 02/12/25 Unknown History atorvastatin 40 mg tablet 40 mg PO DAILY 11/04/23 02/12/25 Unknown History levothyroxine 200 mcg tablet 200 mcg PO DAILY 11/04/23 08/30/24 Unknown History pantoprazole 40 mg tablet,delayed 40 mg PO DAILY 08/30/24 08/30/24 Unknown History release Allergies Allergy/AdvReac Type Severity Reaction Status Date / Time morphine Allergy Severe Hives Verified 02/12/25 12:29 Review of Systems Review of Systems: All systems reviewed & are unremarkable except as noted in HPI and below Constitutional: Constitutional: Reports chills, Reports fever(s), Denies headache(s), Denies malaise and Denies weakness Eyes: Eyes: Denies change in vision, Denies eye discharge and Denies irritation ENT: Denies otalgia, Denies headache(s), Denies nasal congestion, Denies nasal discharge, Denies sinus pain and Denies sore throat Cardiovascular: Cardiovascular: Denies chest pain, Denies edema, Denies palpitations and Denies dyspnea Respiratory: Respiratory: Denies cough and Denies dyspnea Gastrointestinal: Gastrointestinal: Denies abdominal pain, Denies diarrhea, Reports nausea and Reports vomiting Genitourinary: Genitourinary: Denies hematuria, Reports nocturia, Reports dysuria, Reports flank pain and Reports urinary urgency Musculoskeletal: Musculoskeletal: Denies back pain and Denies numbness Integumentary/Breasts: Skin/Breast: Denies pruritus and Denies rash Neurologic: Denies headache(s), Denies numbness and Denies weakness Psychiatric: Psychiatric: Reports no additional psychiatric complaints Endocrine: Endocrine: Denies palpitations PMFSH Past Medical History Medical History History of suicide attempt OD on [place] in October 2020 Back pain Depression Insomnia Hypothyroidism Type 2 diabetes mellitus Bipolar 1 disorder Surgical History Surgical History H/O spinal fusion Family History Family History Father Acute myocardial infarction Colon cancer Congestive heart failure Diabetes mellitus Hypertension Mother Acute myocardial infarction Diabetes mellitus Hypertension Sibling Asthma Other Bipolar disorder Heart disease Schizophrenia Social History Social History Social History: Going through a divorce, she has 2 boys who do not live with her. Smoking status: Never smoker Smoking end date: 09/16/99 Alcohol intake: former Substance use: current Substance use type: marijuana Last use: 09/09/20 Living arrangements: with friend(s) Occupation/Education: other Additional occupation/education comments: Disability for her back problems since 2012 Gender identity (if verbalized by the patient): Female Sexual Orientation (if Verbalized by the Patient): Straight or Heterosexual Spiritual care concerns: No Comments At time of signature, agree with nursing past medical, surgical, social and family history. There is no relevant family history pertinent to the presenting complaint. Exam Const: General: cooperative, healthy appearing, comfortable, no acute distress and well nourished Nutritional Appearance: well nourished Orientation/consciousness: patient oriented x3 HENMT: Head: normocephalic and atraumatic Ears: external ears normal Face/Nose/Sinus: Normal external nose present, Normal nares present and normal facial exam Face and sinus: normal facial exam Eyes: General: appearance normal, both eyes and all related structures Pupils: Equal, round and reactive pupils present EOM: EOMs intact bilaterally Neck: Neck: normal visual inspection, full ROM and supple Chest: Chest palpation & inspection: normal inspection of the chest Resp: Effort & Inspection: normal respiratory effort and able to speak in complete sentences Cardio: Rate: regular rate Rhythm: regular rhythm GI: Inspection: normal to inspection GI Palp: Yes abdominal tenderness (pressure), Yes Soft to palpation, No Firmness to palpation present (GI) and No Guarding due to palpation present (GI) : General: Yes CVA tenderness on the right Skin: General skin exam: normal color and no rashes or lesions noted Neuro: General: patient oriented x3 and moves all extremities Cranial nerves: Yes Equal, round and reactive pupils present Extrem: General: normal to inspection and full ROM Psych: Appearance: grossly normal and well kempt Course Course Emergency Course: Patient is aware of diagnosis, understands and agrees to treatment plan. Anticipatory guidance given. Patient agrees to follow-up as directed and is aware of reasons to seek care at the emergency department. Portions of this record may have been created with voice recognition software Level of Care: Express Care Visit Vital Signs Vital signs: Vital Signs Temperature 36.3 C L 02/12/25 09:40 Pulse Rate 65 02/12/25 09:40 Respiratory Rate 14 02/12/25 09:40 Blood Pressure 134/82 02/12/25 09:40 Pulse Oximetry 100 02/12/25 09:40 Temperature 36.3 C L 02/12/25 09:40 Pulse Rate 65 02/12/25 09:40 Respiratory Rate 14 02/12/25 09:40 Blood Pressure 134/82 02/12/25 09:40 Pulse Oximetry 100 02/12/25 09:40 Reviewed MDM - Female Genitourinary MDM Narrative Medical decision making narrative: Exam findings and UA show probable UTI; patient is non-toxic appearing and is in no distress. No CMT, adnexal tenderness, or evidence of pelvic etiology. Patient is appropriate for outpatient treatment and follow-up. Differential Diagnosis Differential diagnosis: Likely urinary tract infection, bacterial vaginosis, trichomoniasis, cervicitis, vaginitis and cystitis Medical Records Attestation: I reviewed the patient's medical records. Lab Data Attestation: I reviewed the patient's lab results. Labs: Lab Results 02/12/25 Range/Units 09:46 POC Urine Color Light/pale POC Urine Clarity Cloudy POC Urine pH 6.0 POC Ur Specif [place] 1.025 POC Urine Protein 1+ (Negative) POC Ur Glucose (UA) Negative (Negative) POC Urine Ketones Negative (Negative) POC Urine Blood 2+ (Negative) POC Urine Nitrite Positive (Negative) POC Urine Bilirubin Negative (Negative) POC Urine Urobilinogen 0.2 POC U Leukocyte Esteras 2+ (Negative) Discharge Plan Discharge Clinical Impression: Urinary tract infection Qualifiers: Urinary tract infection type: acute pyelonephritis Qualified Code(s): N10 - Acute pyelonephritis Patient Disposition: Home Condition: Stable Instructions: Urinary Tract Infection in Women (ED) Additional Instructions: We will send a urine culture to the lab, based on your symptoms and urine dip we will start treatment today. If culture comes back and bacteria is not susceptible to antibiotic, your prescription may change. Take the fluconazole 24 hours after completing antibiotics. Your symptoms should improve within a day of starting antibiotics, but you should finish all the antibiotic pills you get. Otherwise your infection might come back Continue with increased water intake. Take Tylenol or ibuprofen as needed for pain or fever. Follow-up with primary care provider for urine recheck or see ER visit if condition worsens with high fever, nausea, vomiting, severe back pain Patient Language: [place] Prescriptions: New fluconazole 150 mg tablet 150 mg PO ONCE Qty: 2 0RF Rx Instructions: as a single dose after antibiotics are complete. If symptoms persist, take second dose 3 days later. ciprofloxacin HCl 500 mg tablet 500 mg PO Q12H 10 Days Qty: 20 0RF ondansetron 4 mg tablet,disintegrating 4 mg PO Q6-8H PRN (Reason: nausea and vomiting) Qty: 14 0RF No Action atorvastatin 40 mg tablet 40 mg PO DAILY levothyroxine 200 mcg tablet 200 mcg PO DAILY pantoprazole 40 mg tablet,delayed release (DR/EC) 40 mg PO DAILY nortriptyline 25 mg capsule 75 mg PO DAILY estradiol 1 mg tablet 1 mg PO DAILY Follow-up/Referrals: MihaelaChloe [Other] - 3 Days Stand Alone Forms: Work/School Release IP Time of Disposition: 11:01
[2025-02-12 13:31] LABS: EDUAAPPEAR Cloudy; EDUABILI Negative (Negative); EDUABLOOD 2+ (Negative); EDUACOLOR1 Light/Pale; EDUAGLUCOSE Negative (Negative); EDUAKETONE Negative (Negative); EDUALEUKO 2+ (Negative); EDUANITRATE Positive (Negative); EDUAPROTEIN 1+ (Negative); EDUASPGRAVITY 1.025; EDUAUROBILI 0.2
== END 2025-02-12 11:05 | disposition home or self-care (01) ==
PROVIDERS: Emergency Provider Nurse Practitioner Family
DX: N10 Acute pyelonephritis (principal); C92.10 Chronic myeloid leukemia, BCR/ABL-positive, not having achieved remission; E11.9 Type 2 diabetes mellitus without complications; E03.9 Hypothyroidism, unspecified; F32.A Depression, unspecified; Z87.891 Personal history of nicotine dependence
CPT/HCPCS: 81003; 87077; 87086; 87186; 99213; G0463

== ENCOUNTER 2025-05-15 10:39 | Emergency (ER) | payer OTHER, SELFPAY ==
--- NOTE | 2025-05-15 10:46 | ED_ITS ---
HPI - URI/Sore Throat General Chief Complaint: Upper Respiratory Infection Stated Complaint: sore throat/body aches/cough Time Seen by Provider: 05/15/25 10:47 Source: patient Mode of arrival: ambulatory Limitations: no limitations History of Present Illness HPI Narrative: Cami is a 49-year-old female patient presenting to the clinic today with complaints of cough, body aches, sore throat, and nasal congestion x1 day. Cough is nonproductive. States that a lot of people at work have been passing around a sickness. She has taken ibuprofen and DayQuil for her symptoms. Denies any shortness of breath or chest pain. MD elicited complaint: sore throat and nasal congestion Related Data Home Medications ?Medication ?Instructions ?Recorded ?Confirmed ?Last Taken ?Type estradiol 1 mg tablet 1 mg PO DAILY 04/25/2102/12 Unknown History levothyroxine 200 mcg tablet 200 mcg PO DAILY 11/04/23 08/30/24 Unknown History Allergies Allergy/AdvReac Type Severity Reaction Status Date / Time morphine Allergy Severe Hives Verified 05/15/25 10:48 Review of Systems Review of Systems: Pertinent positives per HPI. Patient denies any fever, chills, rash, headache, visual changes, dizziness, cough, shortness of breath, chest pain, palpitations, nausea, vomiting, diarrhea, constipation, abdominal pain, or any urinary issues. [facility] Past Medical History Medical History History of suicide attempt OD on [place] in October 2020 Back pain Depression Insomnia Hypothyroidism Type 2 diabetes mellitus Bipolar 1 disorder Surgical History Surgical History H/O spinal fusion Family History Family History Father Acute myocardial infarction Colon cancer Congestive heart failure Diabetes mellitus Hypertension Mother Acute myocardial infarction Diabetes mellitus Hypertension Sibling Asthma Other Bipolar disorder Heart disease Schizophrenia Social History Social History Social History: Going through a divorce, she has 2 boys who do not live with her. Smoking status: Never smoker Smoking end date: 09/16/99 Alcohol intake: former Substance use: current Substance use type: marijuana Last use: 09/09/20 Living arrangements: with friend(s) Occupation/Education: other Additional occupation/education comments: Disability for her back problems since 2012 Gender identity (if verbalized by the patient): Female Sexual Orientation (if Verbalized by the Patient): Straight or Heterosexual Spiritual care concerns: No Comments At the time of my signature, I reviewed and agree with the nursing past medical, surgical, social, and family history. There is no relevant family history pertinent to the patient complaint. Exam Narrative: General: Well-developed, obese, in no apparent distress Head: Normocephalic, atraumatic Eyes: Pupils equally round and reactive to light bilaterally, EOM intact, sclera and conjunctive clear, no discharge, lids normal Ears: TMs intact and clear, ear canals clear, no drainage, grossly hearing normal. Nose: Nares patent, clear discharge, mild inflammation, no sinus tenderness. Mouth: Oral pharynx red without lesions or masses, good dentition, MMM. Postnasal drip Neck: Supple, trachea midline, no enlargement of anterior or posterior cervical nodes, no thyroid masses or goiter palpable. Cardio: Regular rate and rhythm, s1 and s2 normal, no murmur appreciated. Resp: Clear to auscultation bilaterally, no rhonchi, rales, wheezing or rubs Course Course Emergency Course: Portions of this record may have been created with voice recognition software. Level of Care: Express Care Visit Vital Signs Vital signs: Vital Signs Temperature 37.1 C 05/15/25 10:53 Pulse Rate 71 05/15/25 10:53 Respiratory Rate 18 05/15/25 10:53 Blood Pressure 125/71 05/15/25 10:53 Pulse Oximetry 100 05/15/25 10:53 Oxygen Delivery Room Air 05/15/25 10:53 Temperature 37.1 C 05/15/25 10:53 Pulse Rate 71 05/15/25 10:53 Respiratory Rate 18 05/15/25 10:53 Blood Pressure 125/71 05/15/25 10:53 Pulse Oximetry 100 05/15/25 10:53 Oxygen Delivery Room Air 05/15/25 10:53 Vital signs reviewed MDM - URI/Sore Throat MDM Narrative Medical decision making narrative: At the time of visit patient is resting comfortably on the exam table. Patient appears to be nontoxic. Vital signs reviewed and stable. Complaints of cough, body aches, sore throat, and nasal congestion x1 day. Cough is nonproductive. States that a lot of people at work have been passing around a sickness. She has taken ibuprofen and DayQuil for her symptoms. Denies any shortness of breath or chest pain. On exam patient has clear nasal congestion, postnasal drip with red oral pharynx. Lung sounds are clear and heart rate is normal rate and rhythm. COVID, flu, and strep test were ordered. Labs: Strep, COVID, and influenza testing was negative in the clinic today. We will send strep for culture. Plan: I suspect patient has URI/postnasal drip/viral syndrome. Work note was given. Supportive measures were discussed with the patient and they voiced understanding discharge instructions and agrees to treatment plan. Return precautions reviewed Differential Diagnosis Differential diagnosis: Likely upper respiratory infection, otitis media, sinusitis, viral infection, bronchitis, influenza, pharyngitis and other (COVID) Lab Data Labs: Lab Results 05/15/25 Range/Units 11:10 POC Influenza A Ag Negative (Negative) POC Influenza B Ag Negative (Negative) POC SARS CoV-2 Ag Negative (Negative) POC Grp A Strep Screen Negative (Negative) Discharge Plan Discharge Clinical Impression: PND (post-nasal drip), Viral syndrome URI (upper respiratory infection) Qualifiers: URI type: unspecified URI Qualified Code(s): J06.9 - Acute upper respiratory infection, unspecified Patient Disposition: Home Condition: Stable Instructions: Antibiotic Form, Viral Syndrome (ED), Cold Symptoms (ED), Postnasal Drip (DC) Additional Instructions: COVID, flu, and strep test were all negative in the clinic today. We will send strep for culture if this comes back positive we will contact you and place you on antibiotics at that time. May take DayQuil/NyQuil for cold/flu symptoms.-this medication has Tylenol in it Increase fluids and stay well hydrated May take Tylenol or Motrin as directed on bottle for pain/fever May use Flonase 1 spray in each nare daily May take OTC antihistamines such as Zyrtec or Claritin daily as directed on bottle May apply Vicks vapor rub to chest to open sinuses Sinus rinses for congestion Cepacol spray, cough drops, throat lozenges, warm tea with honey/lemon, gargle salt water to soothe throat BRAT diet for diarrhea Clear liquids x 24 hours then advance as tolerated for nausea/vomiting Go to the ED if you develop a worsening in your condition- high fever not controlled by Tylenol or Motrin, dehydration, weakness, lethargy, shortness of breath, or chest pain. Follow up with your PCP in 3-5 days if symptoms persist. Patient Language: Mosotho Prescriptions: No Action levothyroxine 200 mcg tablet 200 mcg PO DAILY estradiol 1 mg tablet 1 mg PO DAILY Follow-up/Referrals: Mihaela,Chloe [Other] Stand Alone Forms: Work/School Release IP Time of Disposition: 11:06 Quality NIHSS Nursing Documentation ED NIHSS nursing documentation: reviewed/agree
[2025-05-15 10:53] VITALS: BP 125/71; PULSE 71; RESP 18; TEMP 37.1; O2SAT 100
[2025-05-15 11:11] LABS: EDCOVIDSCREEN Negative (Negative)
[2025-05-15 11:12] LABS: EDINFLUASCREEN Negative (Negative); EDINFLUBSCREEN Negative (Negative); EDSTREPNEGPOS1 Negative (Negative)
== END 2025-05-15 11:18 | disposition home or self-care (01) ==
PROVIDERS: Emergency Provider Nurse Practitioner Family
DX: R09.82 Postnasal drip (principal); B34.9 Viral infection, unspecified; J06.9 Acute upper respiratory infection, unspecified; Z20.822 Contact with and (suspected) exposure to COVID-19; E11.9 Type 2 diabetes mellitus without complications; E03.9 Hypothyroidism, unspecified
CPT/HCPCS: 87081; 87426; 87804; 87880; 99213; G0463

== ENCOUNTER 2025-06-28 08:29 | Emergency (ER) | payer MEDICARE, SELFPAY ==
--- NOTE | 2025-06-28 08:31 | ED_ITS ---
HPI - Female Genitourinary General Chief complaint: Urogenital-Female Stated complaint: Vaginal Problems/UTI Time Seen by Provider: 06/28/25 08:31 Source: patient Mode of arrival: ambulatory Limitations: no limitations History of Present Illness HPI Narrative: Patient is a 49-year-old female who presents with 1 week of burning with urination and pressure along with vaginal irritation and itching. Denies any discharge or foul odor. Does have a new boyfriend who has cheated and is wanting STI testing. Denies any low back pain, fever, chills, nausea, vomiting, diarrhea. MD elicited complaint: dysuria Related Data Home Medications ?Medication ?Instructions ?Recorded ?Confirmed ?Last Taken ?Type estradiol 1 mg tablet 1 mg PO DAILY 04/25/2102/12 Unknown History Allergies Allergy/AdvReac Type Severity Reaction Status Date / Time morphine Allergy Severe Hives Verified 06/28/25 08:47 Review of Systems Review of Systems: All systems reviewed & are unremarkable except as noted in HPI and below Constitutional: Constitutional: Denies chills, Denies fever(s), Denies headache(s), Denies malaise and Denies weakness Eyes: Eyes: Denies change in vision, Denies eye discharge and Denies irritation ENT: Denies otalgia, Denies headache(s), Denies nasal congestion, Denies nasal discharge, Denies sinus pain and Denies sore throat Cardiovascular: Cardiovascular: Denies chest pain, Denies edema, Denies palpitations and Denies dyspnea Respiratory: Respiratory: Denies cough and Denies dyspnea Gastrointestinal: Gastrointestinal: Denies abdominal pain, Denies diarrhea, Denies nausea and Denies vomiting Genitourinary: Genitourinary: Denies hematuria, Reports urinary frequency, Denies nocturia, Reports dysuria, Denies flank pain, Denies urinary urgency, Denies vaginal discharge and Reports vaginal pruritus Musculoskeletal: Musculoskeletal: Denies back pain and Denies numbness Integumentary/Breasts: Skin/Breast: Denies pruritus and Denies rash Neurologic: Denies headache(s), Denies numbness and Denies weakness Psychiatric: Psychiatric: Reports no additional psychiatric complaints Endocrine: Endocrine: Denies palpitations PMFSH Past Medical History Medical History History of suicide attempt OD on [place] in October 2020 Back pain Depression Insomnia Hypothyroidism Type 2 diabetes mellitus Bipolar 1 disorder Surgical History Surgical History H/O spinal fusion Family History Family History Father Acute myocardial infarction Colon cancer Congestive heart failure Diabetes mellitus Hypertension Mother Acute myocardial infarction Diabetes mellitus Hypertension Sibling Asthma Other Bipolar disorder Heart disease Schizophrenia Social History Social History Social History: Going through a divorce, she has 2 boys who do not live with her. Smoking status: Never smoker Smoking end date: 09/16/99 Alcohol intake: former Substance use: current Substance use type: marijuana Last use: 09/09/20 Living arrangements: with friend(s) Occupation/Education: other Additional occupation/education comments: Disability for her back problems since 2012 Gender identity (if verbalized by the patient): Female Sexual Orientation (if Verbalized by the Patient): Straight or Heterosexual Spiritual care concerns: No Comments At time of signature, agree with nursing past medical, surgical, social and family history. There is no relevant family history pertinent to the presenting complaint. Exam Const: General: cooperative, healthy appearing, comfortable, no acute distress and well nourished Nutritional Appearance: well nourished Orientation/consciousness: patient oriented x3 HENMT: Head: normocephalic and atraumatic Ears: external ears normal Face/Nose/Sinus: Normal external nose present, Normal nares present and normal facial exam Face and sinus: normal facial exam Eyes: General: appearance normal, both eyes and all related structures Pupils: Equal, round and reactive pupils present EOM: EOMs intact bilaterally Neck: Neck: normal visual inspection, full ROM and supple Chest: Chest palpation & inspection: normal inspection of the chest Resp: Effort & Inspection: normal respiratory effort and able to speak in complete sentences Cardio: Rate: regular rate Rhythm: regular rhythm GI: Inspection: normal to inspection GI Palp: No abdominal tenderness and Yes Soft to palpation : General: Yes no CVA tenderness Back/Spine/Pelvis: Back: no CVA tenderness Skin: General skin exam: normal color and no rashes or lesions noted Neuro: General: patient oriented x3 and moves all extremities Cranial nerves: Yes Equal, round and reactive pupils present Extrem: General: normal to inspection and full ROM Psych: Appearance: grossly normal and well kempt Course Course Emergency Course: Patient is aware of diagnosis, understands and agrees to treatment plan. Anticipatory guidance given. Patient agrees to follow-up as directed and is aware of reasons to seek care at the emergency department. Portions of this record may have been created with voice recognition software Level of Care: Express Care Visit Vital Signs Vital signs: Reviewed MDM - Female Genitourinary MDM Narrative Medical decision making narrative: Based on history and symptoms, will treat with antibiotics for UTI and fluconazole for yeast. Patient is agreeable to wait for results of other testing before treatment; patient is non-toxic appearing and is in no distress. No CMT, adnexal tenderness, or evidence of pelvic etiology. Patient is appropriate for outpatient treatment and follow-up. Differential Diagnosis Differential diagnosis: Likely urinary tract infection, bacterial vaginosis, trichomoniasis, cervicitis, vaginitis, cystitis and other (STI, yeast) Medical Records Attestation: I reviewed the patient's medical records. Discharge Plan Discharge Clinical Impression: Dysuria, Vaginal yeast infection Patient Disposition: Home Condition: Stable Instructions: Antibiotic Form Additional Instructions: We will send a urine culture to the lab, based on your symptoms and history we will start treatment today. If culture comes back and bacteria is not susceptible to antibiotic, your prescription may change. Your symptoms should improve within a day of starting antibiotics, but you should finish all the antibiotic pills you get. Otherwise your infection might come back Continue with increased water intake. Take Tylenol or ibuprofen as needed for pain or fever. Follow-up with primary care provider for urine recheck or see ER visit if condition worsens with high fever, nausea, vomiting, severe back pain You have been tested for potential gonorrhea, chlamydia, and trichomoniasis today. You will receive a phone call in 1-2 days with any positive results of today's testing. It is very important that you avoid unprotected intercourse for 7 days and until your partner(s) have been treated. Please encourage your partner(s) to seek testing and treatment. When you have been exposed to sexually transmitted infections, it is important that you seek comprehensive testing, since we do not provide testing for all sexually transmitted infections. Some infections can have no symptoms, but cause serious health problems. Contact your health care provider or report to the emergency department if: ? You have genital swelling or pain, or unusual bleeding. ? You have joint pain, rash, swollen lymph nodes or night sweats. ? You are severe abdominal pain. ? You have a fever. ? Symptoms do not go away or they get worse even after treatment. ? You have bleeding or pain during sex. Patient Language: Bermudian Prescriptions: New fluconazole 150 mg tablet 150 mg PO ONCE Qty: 2 0RF Rx Instructions: as a single dose after antibiotics are complete. If symptoms persist, take second dose 3 days later. nitrofurantoin monohyd/m-cryst 100 mg capsule 100 mg PO Q12H 5 Days Qty: 10 0RF Rx Instructions: must administer with a meal/food No Action estradiol 1 mg tablet 1 mg PO DAILY Follow-up/Referrals: Shai Reid MD [Physician, Family Practice] - 3 Days Stand Alone Forms: Work/School Release IP Time of Disposition: 09:18
[2025-06-28 08:41] VITALS: BP 123/81; PULSE 76; RESP 18; TEMP 36.9; O2SAT 100
[2025-06-28 20:29] LABS: Trichomonas Vag PCR NOT DETECTED (NOT DETECTE)
== END 2025-06-28 09:24 | disposition home or self-care (01) ==
PROVIDERS: Emergency Provider Nurse Practitioner Family
DX: R30.0 Dysuria (principal); B37.31 Acute candidiasis of vulva and vagina; Z11.3 Encounter for screening for infections with a predominantly sexual mode of transmission; N76.0 Acute vaginitis; Z87.891 Personal history of nicotine dependence; E11.9 Type 2 diabetes mellitus without complications; E03.9 Hypothyroidism, unspecified
CPT/HCPCS: 87070; 87086; 87491; 87591; 87661; 87798; 99213; G0463

== ENCOUNTER 2025-08-02 16:40 | Emergency (ER) | payer MEDICARE, SELFPAY ==
--- NOTE | 2025-08-02 16:43 | ED.FEMALEGU ---
HPI - Female Genitourinary General Chief complaint: Urogenital-Female Stated complaint: UTI/Sinus Time Seen by Provider: 08/02/25 16:42 Source: patient Mode of arrival: ambulatory Limitations: no limitations History of Present Illness HPI Narrative: Brian is a 49-year-old female patient presenting to the clinic today with complaints possible UTI x 2 days and sinus congestion x 1 day. She reports she is having burning with urination, frequency, and urgency. Stated she started having sinus congestion yesterday. Has taken DayQuil NyQuil for symptoms. Has not taken anything for her urinary symptoms. She denies any fevers, chills, body aches. No nausea vomiting or diarrhea. No abdominal pain or back pain. Related Data Home Medications ?Medication ?Instructions ?Recorded ?Confirmed ?Last Taken ?Type estradiol 1 mg tablet 1 mg PO DAILY 04/25/21 02/12/25 Unknown History levothyroxine 200 mcg tablet mcg 08/02/25 Unknown History Allergies Allergy/AdvReac Type Severity Reaction Status Date / Time morphine Allergy Severe Hives Verified 08/02/25 16:44 Review of Systems Review of Systems: Pertinent positives per HPI. Patient denies any fever, chills, rash, headache, visual changes, dizziness, cough, shortness of breath, chest pain, palpitations, nausea, vomiting, diarrhea, constipation, abdominal pain, or any urinary issues. PENDING SALE TO [facility] Past Medical History Medical History History of suicide attempt OD on [place] in October 2020 Back pain Depression Insomnia Hypothyroidism Type 2 diabetes mellitus Bipolar 1 disorder Surgical History Surgical History H/O spinal fusion Family History Family History Father Acute myocardial infarction Colon cancer Congestive heart failure Diabetes mellitus Hypertension Mother Acute myocardial infarction Diabetes mellitus Hypertension Sibling Asthma Other Bipolar disorder Heart disease Schizophrenia Social History Social History Social History: Going through a divorce, she has 2 boys who do not live with her. Smoking status: Never smoker Smoking end date: 09/16/99 Alcohol intake: former Substance use: current Substance use type: marijuana Last use: 09/09/20 Living arrangements: with friend(s) Occupation/Education: other Additional occupation/education comments: Disability for her back problems since 2012 Gender identity (if verbalized by the patient): Female Sexual Orientation (if Verbalized by the Patient): Straight or Heterosexual Spiritual care concerns: No Comments At the time of my signature, I reviewed and agree with the nursing past medical, surgical, social, and family history. There is no relevant family history pertinent to the patient complaint. Exam Narrative: General: Well-developed, obese, in no apparent distress Head: Normocephalic, atraumatic Eyes: Pupils equally round and reactive to light bilaterally, EOM intact, sclera and conjunctive clear, no discharge, lids normal Ears: TMs intact and clear, ear canals clear, no drainage, grossly hearing normal. Nose: Nares patent, clear discharge, mild inflammation, no sinus tenderness. Mouth: Oral pharynx red without lesions or masses, good dentition, MMM. Postnasal drip Neck: Supple, trachea midline, no enlargement of anterior or posterior cervical nodes, no thyroid masses or goiter palpable. Cardio: Regular rate and rhythm, s1 and s2 normal, no murmur appreciated. Resp: Clear to auscultation bilaterally, no rhonchi, rales, wheezing or rubs Abdomen: Soft, pliable, bowel sounds present in all quadrants, suprapubic tender to palpation, no organomegly, no CVAT tenderness. Course Course Emergency Course: Portions of this record may have been created with voice recognition software. Level of Care: Express Care Visit Vital Signs Vital signs: Vital Signs Temperature 37.0 C 08/02/25 16:51 Pulse Rate 66 08/02/25 16:51 Respiratory Rate 18 08/02/25 16:51 Blood Pressure 133/97 H 08/02/25 16:51 Pulse Oximetry 100 08/02/25 16:51 Oxygen Delivery Room Air 08/02/25 16:51 Temperature 37.0 C 08/02/25 16:51 Pulse Rate 66 08/02/25 16:51 Respiratory Rate 18 08/02/25 16:51 Blood Pressure 133/97 H 08/02/25 16:51 Pulse Oximetry 100 08/02/25 16:51 Oxygen Delivery Room Air 08/02/25 16:51 Vital signs reviewed MDM - Female Genitourinary MDM Narrative Medical decision making narrative: At the time of visit patient is resting comfortably on the exam table. Patient appears to be nontoxic. Complaints possible UTI x 2 days and sinus congestion x 1 day. She reports she is having burning with urination, frequency, and urgency. Stated she started having sinus congestion yesterday. Has taken DayQuil NyQuil for symptoms. Has not taken anything for her urinary symptoms. She denies any fevers, chills, body aches. No nausea vomiting or diarrhea. No abdominal pain or back pain. On exam patient has bilateral TMs intact and clear, nasal congestion with clear nasal drainage, oral pharynx red, postnasal drip, lung sounds clear, heart rates regular rate and rhythm, abdomen soft, pliable, nondistended, tenderness palpation over the suprapubic region, no organomegaly, no CVAT tenderness. COVID and influenza testing was ordered. Urine dip was ordered. Labs: COVID, influenza were both negative in the clinic today. Urine dip was positive for leukocytes, blood, and protein. We will send urine for culture. Plan: I suspect patient has URI/pharyngitis/UTI. We will send urine for culture. Prescription for Augmentin was sent to the pharmacy. Work note was given. Supportive measures were discussed with the patient and they voiced understanding discharge instructions and agrees to treatment plan. Return precautions reviewed Differential Diagnosis Differential diagnosis: Likely urinary tract infection and cystitis (URI, pharyngitis, strep pharyngitis, COVID, influenza) Lab Data Labs: Lab Results 08/02/25 08/02/25 Range/Units 17:02 17:04 POC Urine Color Dark POC Urine Clarity Cloudy POC Urine pH 6.0 POC Ur Specif [place] 1.020 POC Urine Protein 1+ (Negative) POC Ur Glucose (UA) Negative (Negative) POC Urine Ketones Negative (Negative) POC Urine Blood 1+ (Negative) POC Urine Nitrite Negative (Negative) POC Urine Bilirubin Negative (Negative) POC Urine Urobilinogen 0.2 POC U Leukocyte Esteras 1+ (Negative) POC Influenza A Ag Negative (Negative) POC Influenza B Ag Negative (Negative) POC SARS CoV-2 Ag Negative (Negative) Discharge Plan Discharge Clinical Impression: URI (upper respiratory infection) Qualifiers: URI type: unspecified URI Qualified Code(s): J06.9 - Acute upper respiratory infection, unspecified Pharyngitis Qualifiers: Pharyngitis/tonsillitis etiology: unspecified etiology Qualified Code(s): J02.9 - Acute pharyngitis, unspecified UTI (urinary tract infection) Qualifiers: Urinary tract infection type: acute cystitis Hematuria presence: with hematuria Qualified Code(s): N30.01 - Acute cystitis with hematuria Patient Disposition: Home Condition: Stable Instructions: Antibiotic Form, Urinary Tract Infection in Women (ED), Pharyngitis (ED), Cold Symptoms (ED) Additional Instructions: URI discharge instructions COVID and influenza testing were negative. Increase fluids and stay well hydrated May take Tylenol or motrin as directed on bottle for pain/fever May use Flonase 1 spray in each nare daily May take OTC antihistamines such as Zyrtec or Claritin daily as directed on bottle May apply Vicks vapor rub to chest to open sinuses Sinus rinses for congestion Cepacol spray, cough drops, throat lozenges, warm tea with honey/lemon, gargle salt water to soothe throat BRAT diet for diarrhea Clear liquids x 24 hours then advance as tolerated for nausea/vomiting Go to the ED if you develop a worsening in your condition- high fever not controlled by Tylenol or Motrin, dehydration, weakness, lethargy, shortness of breath, or chest pain. Follow up with your PCP in 3-5 days if symptoms persist. UTI discharge instructions Take Augmentin as prescribed Take Diflucan as prescribed Increase fluids and stay well hydrated Wipe front to back. May use wet wipes. Avoid tub baths If sexually active- pee before and after intercourse. Wear cotton panties Avoid tight clothing up against the genitals Follow up with your PCP in 1 week if symptoms persist. Patient Language: Mongolian Prescriptions: New fluconazole 150 mg tablet 150 mg PO ONCE Qty: 2 0RF Rx Instructions: as a single dose. May repeat in 72 hours if needed. amoxicillin-pot clavulanate 875-125 mg tablet 1 tablet PO Q12H 10 Days Qty: 20 0RF No Action levothyroxine 200 mcg tablet estradiol 1 mg tablet 1 mg PO DAILY Follow-up/Referrals: UNKNOWN,DOCTOR [Non-Staff] Stand Alone Forms: Work/School Release IP Time of Disposition: 17:00 Quality NIHSS Nursing Documentation ED NIHSS nursing documentation: reviewed/agree
[2025-08-02 16:51] VITALS: BP 133/97; PULSE 66; RESP 18; TEMP 37; O2SAT 100
[2025-08-02 17:04] LABS: EDUAAPPEAR Cloudy; EDUABILI Negative (Negative); EDUABLOOD 1+ (Negative); EDUACOLOR1 Dark; EDUAGLUCOSE Negative (Negative); EDUAKETONE Negative (Negative); EDUALEUKO 1+ (Negative); EDUANITRATE Negative (Negative); EDUAPH 6.0; EDUAPROTEIN 1+ (Negative); EDUASPGRAVITY 1.020; EDUAUROBILI 0.2
[2025-08-02 17:05] LABS: EDCOVIDSCREEN Negative (Negative); EDINFLUASCREEN Negative (Negative); EDINFLUBSCREEN Negative (Negative)
== END 2025-08-02 17:08 | disposition home or self-care (01) ==
PROVIDERS: Emergency Provider Nurse Practitioner Family
DX: J06.9 Acute upper respiratory infection, unspecified (principal); J02.9 Acute pharyngitis, unspecified; N30.01 Acute cystitis with hematuria; Z20.822 Contact with and (suspected) exposure to COVID-19; Z87.891 Personal history of nicotine dependence; E11.9 Type 2 diabetes mellitus without complications; E03.9 Hypothyroidism, unspecified
CPT/HCPCS: 81003; 87086; 87426; 87804; 99213; G0463

== ENCOUNTER 2025-08-22 12:23 | Emergency (ER) | payer MEDICARE, SELFPAY ==
[2025-08-22 12:40] VITALS: BP 140/100; PULSE 76; RESP 18; TEMP 37.1; O2SAT 100
--- NOTE | 2025-08-22 12:49 | ED_ITS ---
HPI - URI/Sore Throat General Chief Complaint: Upper Respiratory Infection Stated Complaint: Sinus Time Seen by Provider: 08/22/25 12:45 Source: patient Mode of arrival: ambulatory Limitations: no limitations History of Present Illness HPI Narrative: Cami is a 49-year-old female patient presenting to the clinic today with complaints of nasal congestion, sinus drainage, sore throat, nausea, and vomiting that all started this morning. She has taken DayQuil and ibuprofen for her symptoms. Denies any known fevers, chills, body aches. Denies any abdominal pain or diarrhea. Related Data Home Medications ?Medication ?Instructions ?Recorded ?Confirmed ?Last Taken ?Type estradiol 1 mg tablet 1 mg PO DAILY 04/25/2102/12 Unknown History levothyroxine 200 mcg tablet mcg 08/02/25 Unknown His tory Allergies Allergy/AdvReac Type Severity Reaction Status Date / Time morphine Allergy Severe Hives Verified 08/22/25 12:35 Review of Systems Review of Systems: Pertinent positives per HPI. Patient denies any fever, chills, rash, headache, visual changes, dizziness, shortness of breath, chest pain, palpitations, diarrhea, constipation, abdominal pain, or any urinary issues. [facility] Past Medical History Medical History History of suicide attempt OD on [place] in October 2020 Back pain Depression Insomnia Hypothyroidism Type 2 diabetes mellitus Bipolar 1 disorder Surgical History Surgical History H/O spinal fusion Family History Family History Father Acute myocardial infarction Colon cancer Congestive heart failure Diabetes mellitus Hypertension Mother Acute myocardial infarction Diabetes mellitus Hypertension Sibling Asthma Other Bipolar disorder Heart disease Schizophrenia Social History Social History Social History: Going through a divorce, she has 2 boys who do not live with her. Smoking status: Never smoker Smoking end date: 09/16/99 Alcohol intake: former Substance use: current Substance use type: marijuana Last use: 09/09/20 Living arrangements: with friend(s) Occupation/Education: other Additional occupation/education comments: Disability for her back problems since 2012 Gender identity (if verbalized by the patient): Female Sexual Orientation (if Verbalized by the Patient): Straight or Heterosexual Spiritual care concerns: No Comments At the time of my signature, I reviewed and agree with the nursing past medical, surgical, social, and family history. There is no relevant family history pertinent to the patient complaint. Exam Narrative: General: Well-developed, obese, in no apparent distress Head: Normocephalic, atraumatic Eyes: Pupils equally round and reactive to light bilaterally, EOM intact, sclera and conjunctive clear, no discharge, lids normal Ears: TMs intact and congested, ear canals clear, no drainage, grossly hearing normal. Nose: Nares patent, clear discharge, no inflammation, no sinus tenderness. Mouth: Oral pharynx red without lesions or masses, good dentition, MMM. Postnasal drip Neck: Supple, trachea midline, no enlargement of anterior or posterior cervical nodes, no thyroid masses or goiter palpable. Cardio: Regular rate and rhythm, s1 and s2 normal, no murmur appreciated. Resp: Clear to auscultation bilaterally, no rhonchi, rales, wheezing or rubs Course Course Level of Care: Express Care Visit Vital Signs Vital signs: Vital Signs Temperature 37.1 C 08/22/25 12:40 Pulse Rate 76 08/22/25 12:40 Respiratory Rate 18 08/22/25 12:40 Blood Pressure 140/100 H 08/22/25 12:40 Pulse Oximetry 100 08/22/25 12:40 Oxygen Delivery Room Air 08/22/25 12:40 Temperature 37.1 C 08/22/25 12:40 Pulse Rate 76 08/22/25 12:40 Respiratory Rate 18 08/22/25 12:40 Blood Pressure 140/100 H 08/22/25 12:40 Pulse Oximetry 100 08/22/25 12:40 Oxygen Delivery Room Air 08/22/25 12:40 [facility] MDM Narrative Medical decision making narrative: At the time of visit patient is resting comfortably on the exam table. Patient appears to be nontoxic. complaints of nasal congestion, sinus drainage, sore throat, nausea, and vomiting that all started this morning. She has taken DayQuil and ibuprofen for her symptoms. Denies any known fevers, chills, body aches. On exam patient has bilateral TMs intact and congested, clear nasal drainage, mild anterior turbinate inflammation, oral pharynx red with postnasal drip, no cervical lymphadenopathy, heart rates regular rate and rhythm, lung sounds are clear. COVID, flu, and strep test were ordered. Labs: COVID, influenza, and strep test were all negative in the clinic today. We will send strep for culture. Plan: I suspect patient has URI/pharyngitis. Work note was given. Supportive measures were discussed with the patient and they voiced understanding discharge instructions and agrees to treatment plan. Return precautions reviewed Differential Diagnosis Differential Diagnosis: Differential diagnostic considerations for upper respiratory infection include upper respiratory infection, croup, otitis media, sinusitis, viral infection, bronchitis, influenza, pharyngitis, strep, uvulitis. Discharge Plan Discharge Clinical Impression: Viral infection Upper respiratory infection Qualifiers: URI type: unspecified URI Qualified Code(s): J06.9 - Acute upper respiratory infection, unspecified Pharyngitis Qualifiers: Pharyngitis/tonsillitis etiology: unspecified etiology Qualified Code(s): J02.9 - Acute pharyngitis, unspecified Patient Disposition: Home Condition: Stable Instructions: Antibiotic Form, Pharyngitis (ED), Cold Symptoms (ED) Additional Instructions: May take Coricidin HBP for cold/flu symptoms Increase fluids and stay well hydrated May take Tylenol or motrin as directed on bottle for pain/fever May use Flonase 1 spray in each nare daily May take OTC antihistamines such as Zyrtec or Claritin daily as directed on bottle May apply Vicks vapor rub to chest to open sinuses Sinus rinses for congestion Cepacol spray, cough drops, throat lozenges, warm tea with honey/lemon, gargle salt water to soothe throat BRAT diet for diarrhea Clear liquids x 24 hours then advance as tolerated for nausea/vomiting Go to the ED if you develop a worsening in your condition- high fever not controlled by Tylenol or Motrin, dehydration, weakness, lethargy, shortness of breath, or chest pain. Follow up with your PCP in 3-5 days if symptoms persist. Patient Language: Bulgarian Prescriptions: No Action levothyroxine 200 mcg tablet estradiol 1 mg tablet 1 mg PO DAILY Follow-up/Referrals: PHYSICIAN,[facility] HELPER [Primary Care Provider, Internal Medicine] Stand Alone Forms: Work/School Release IP Time of Disposition: 12:50 Quality NIHSS Nursing Documentation ED NIHSS nursing documentation: reviewed/agree
[2025-08-22 13:03] LABS: EDSTREPNEGPOS1 Negative (Negative)
[2025-08-22 13:04] LABS: EDCOVIDSCREEN Negative (Negative); EDINFLUASCREEN Negative (Negative); EDINFLUBSCREEN Negative (Negative)
[2025-08-22 13:04] LABS: EDCOVIDSCREEN Negative (Negative); EDINFLUASCREEN Negative (Negative); EDINFLUBSCREEN Negative (Negative)
== END 2025-08-22 13:00 | disposition home or self-care (01) ==
PROVIDERS: Emergency Provider Nurse Practitioner Family
DX: B34.9 Viral infection, unspecified (principal); J06.9 Acute upper respiratory infection, unspecified; J02.9 Acute pharyngitis, unspecified; Z20.822 Contact with and (suspected) exposure to COVID-19; E11.9 Type 2 diabetes mellitus without complications; E03.9 Hypothyroidism, unspecified; Z87.891 Personal history of nicotine dependence
CPT/HCPCS: 87081; 87426; 87804; 87880; 99213; G0463